=== PATIENT | male | born 1945 | race Caucasian/White ===

== ENCOUNTER 2018-04-20 15:51 | Emergency (ER) | payer MEDICARE ==
[2018-04-20 16:06] LABS: BASOPHILS % (AUTO) 0.2 % (0.0-5.0); EOSINOPHILS % (AUTO) 0.2 % (0.0-8.0); LYMPHOCYTES % (AUTO) 6.4 % (21.0-51.0); MEAN CORPUSCULAR HEMOGLOBIN 29.9 pg (27.0-33.0); MEAN CORPUSCULAR HGB CONC 34.5 g/dL (32.0-36.0); MEAN CORPUSCULAR VOLUME 86.7 fL (79-99); MONOCYTES % (AUTO) 5.2 % (3.0-13.0); PLATELET COUNT (AUTO) 236 K/uL (130-400); RED BLOOD CELL COUNT(AUTO) 3.69 MIL/uL (4.50-6.20)
[2018-04-20 16:19] LABS: CREATININE 2.1 mg/dL (0.5-1.5); INR 0.95 (0.85-1.15); PARTIAL THROMBOPLASTIN TIME 29.5 SEC (26.3-35.5); POTASSIUM 3.9 mmol/L (3.5-5.1)
[2018-04-20 16:24] LABS: ALBUMIN 2.8 g/dL (3.5-5.0); BILIRUBIN,TOTAL 0.5 mg/dL (0.2-1.0); TOTAL PROTEIN, SERUM 6.4 g/dL (6.0-8.3)
[2018-04-20] MEDS ORDERED: ASPIRIN 325 MG TABLET ONE (18:33)
== END 2018-04-20 18:45 | disposition home or self-care (01) ==
LOC: EDH 15:51
DX: R07.89 Other chest pain (principal); I10 Essential (primary) hypertension; E11.9 Type 2 diabetes mellitus without complications; E78.5 Hyperlipidemia, unspecified; Z90.49 Acquired absence of other specified parts of digestive tract; Z98.890 Other specified postprocedural states; Z87.891 Personal history of nicotine dependence
CPT/HCPCS: 36415; 71045; 80053; 82550; 84484; 85025; 85610; 85730; 93005

== ENCOUNTER 2019-05-17 15:38 | Emergency (ER) | payer MEDICARE ==
[2019-05-17 17:43] LABS: BASOPHILS % (AUTO) 0.3 % (0.0-5.0); EOSINOPHILS % (AUTO) 0.3 % (0.0-8.0); HEMATOCRIT 35.4 % (42-54); LYMPHOCYTES % (AUTO) 5.6 % (21.0-51.0); MEAN CORPUSCULAR HEMOGLOBIN 29.5 pg (27.0-33.0); MEAN CORPUSCULAR HGB CONC 33.9 g/dL (32.0-36.0); MONOCYTES % (AUTO) 3.3 % (3.0-13.0); PLATELET COUNT (AUTO) 237 K/uL (130-400); RED BLOOD CELL COUNT(AUTO) 4.07 MIL/uL (4.50-6.20); RED CELL DISTRIBUTION WIDTH 13.7 % (11.0-15.5); WHITE BLOOD COUNT (AUTO) 13.5 K/uL (4.8-10.8)
[2019-05-17] MEDS ORDERED: SODIUM CHLORIDE 0.9% 1000ML 1,000 ML IV ONE (17:48)
[2019-05-17 17:55] LABS: POTASSIUM 3.9 mmol/L (3.5-5.1)
[2019-05-17 18:00] LABS: ALBUMIN 3.2 g/dL (3.5-5.0); BILIRUBIN,TOTAL 0.4 mg/dL (0.2-1.0); TOTAL PROTEIN, SERUM 6.5 g/dL (6.0-8.3)
[2019-05-17 19:09] LABS: APPEARANCE,URINE Clear (CLEAR); BILIRUBIN,URINE Negative (NEGATIVE); COLOR,URINE Yellow (YELLOW); GLUCOSE, URINE (UA) Negative (NEGATIVE); KETONES,URINE Negative (NEGATIVE); LEUKOCYTE ESTERASE ,URINE Negative (NEGATIVE); NITRATE,URINE Negative (NEGATIVE); OCCULT BLOOD,URINE Negative (NEGATIVE); PROTEIN,URINE POS 2+ mg/dL (NEGATIVE); UROBILINOGEN,URINE 0.2 mg/dL (0.2-1.0)
[2019-05-17 19:19] LABS: BACTERIA,URINE Few /HPF (None Seen); SQUAMOUS EPITHELIAL CELL,UR Moderate /HPF (0-2)
[2019-05-17 19:20] LABS: MUCUS,URINE Many LPF (None Seen)
== END 2019-05-17 20:19 | disposition home or self-care (01) ==
LOC: EDH 15:38
DX: G90.01 Carotid sinus syncope (principal); E11.9 Type 2 diabetes mellitus without complications; I10 Essential (primary) hypertension; E78.5 Hyperlipidemia, unspecified; Z95.1 Presence of aortocoronary bypass graft; Z87.891 Personal history of nicotine dependence
CPT/HCPCS: 36415; 70450; 80053; 81001; 82948; 83735; 84484; 85025; 93005; 96360; 96361; 99285; J7030

== ENCOUNTER → 2020-11-28 | Outpatient (CLI) | payer MEDICARE ==
[~2020-11-28] MED LIST: AMIT25TA9 PO; AMLO-258 PO; ATEN50TA PO; CLOP75TA32 PO; DOXE6TAB4 PO; ERGO2000 PO; FAMO40TA7 PO; FOLI0.8T2 PO; FURO80TA3 PO; INSU100I21 SQ; LOSA50TA64 PO; SITA50TA PO; TAMS-1 PO; TORS100T16 PO; ZOLP5TAB8 PO
== END | disposition home or self-care (01) ==
LOC: SHCH 15:05
PROVIDERS: ATTEND Internal Medicine Cardiovascular Disease
DX: I47.1 Supraventricular tachycardia (principal); R55 Syncope and collapse
CPT/HCPCS: 93306; 93356

== ENCOUNTER 2021-02-10 00:55 | Inpatient (IN) | payer MEDICARE ==
[2021-02-10] VITALS (9 sets, daily range): BP systolic 118–145; BP diastolic 48–81
[~2021-02-10] VITALS: Ht 177.8 cm; Wt 106.2 kg
[2021-02-10 01:33] LABS: POTASSIUM 4.6 mmol/L (3.5-5.1)
[2021-02-10 01:44] LABS: ALBUMIN 2.6 g/dL (3.5-5.0); BILIRUBIN,TOTAL 0.4 mg/dL (0.2-1.0); CREATININE 6.8 mg/dL (0.5-1.5); TOTAL PROTEIN, SERUM 5.8 g/dL (6.0-8.3)
[2021-02-10] MEDS ORDERED: MORPHINE 4 MG SYG IV ONE (02:00)
[2021-02-10] MEDS ORDERED: HEPARIN 5,000 UNIT VIAL IV ONE (02:00)
[2021-02-10 02:11] LABS: BASOPHILS % (AUTO) 0.2 % (0.0-5.0); EOSINOPHILS % (AUTO) 0.3 % (0.0-8.0); HEMATOCRIT 24.2 % (42-54); LYMPHOCYTES % (AUTO) 1.5 % (21.0-51.0); MEAN CORPUSCULAR HEMOGLOBIN 28.4 pg (27.0-33.0); MEAN CORPUSCULAR HGB CONC 32.6 g/dL (32.0-36.0); MEAN CORPUSCULAR VOLUME 87.1 fL (79-99); MONOCYTES % (AUTO) 3.5 % (3.0-13.0); NEUTROPHILS % (AUTO) 93.7 % (40.0-77.0); PLATELET COUNT (AUTO) 252 K/uL (130-400); RED BLOOD CELL COUNT(AUTO) 2.78 MIL/uL (4.50-6.20); RED CELL DISTRIBUTION WIDTH 15.3 % (11.0-15.5); WHITE BLOOD COUNT (AUTO) 14.6 K/uL (4.8-10.8)
[2021-02-10 02:30] LABS: INR 1.02 (0.85-1.15); PROTHROMBIN TIME 11.1 SEC (9.6-11.6)
[2021-02-10 02:31] LABS: B-TYPE NATRIURETIC PEPTIDE 3780 pg/mL (0-100)
[2021-02-10] MEDS ORDERED: HEPARIN 25,000 UNITS/250ML D5W 250 ML IV SCH (03:00)
[2021-02-10] MEDS ORDERED: ONDANSETRON 4MG INJ IV PRN (03:00)
[2021-02-10] MEDS ORDERED: CLOPIDOGREL 300MG TAB PO SCH (03:00)
[2021-02-10] MEDS ORDERED: ASPIRIN 81MG CHEW TAB PO ONE (03:00)
[2021-02-10 03:23] LABS: CHOLESTEROL 140 mg/dL (<200); CREATINE KINASE, TOTAL 89 U/L (21-232); HDL CHOLESTEROL 34 mg/dL (29-71); LDL DIRECT 85 mg/dL (0-99); MYOGLOBIN 213 ng/mL (10-92); TRIGLYCERIDES 121 mg/dL (30-200)
[2021-02-10] MEDS: NITROGLYCERIN 1GM OINT 1 INCH/1GM TD SCH ×4 (03:38→20:01)
[2021-02-10] MEDS ORDERED: OMEP40CA21 PO (04:50)
[2021-02-10] MEDS ORDERED: PIND5 PO (04:50)
[2021-02-10] MEDS ORDERED: MIDO10TA PO (04:50)
[2021-02-10 06:19] LABS: PARTIAL THROMBOPLASTIN TIME 26.5 SEC (26.3-35.5)
[2021-02-10] MEDS ORDERED: FAMOTIDINE 20MG VIAL IV SCH (09:00)
[2021-02-10] MEDS ORDERED: METOPROLOL TARTRATE 25 MG TAB PO SCH (09:00)
[2021-02-10] MEDS: ASPIRIN 81 MG EC TAB PO SCH (10:06)
[2021-02-10 12:44] LABS: HEMOGLOBIN A1C 9.5 % (4.0-6.0)
[2021-02-10] MEDS: INSULIN HUMULIN R 100 UNIT/ML 3ML SQ SCH ×2 (18:06→20:04)
[2021-02-10] MEDS: LOSARTAN 25 MG TABLET PO SCH (20:00)
[2021-02-10] MEDS: INSULIN GLARGINE 100 UNITS/ML 10 ML VIAL SQ SCH (20:03)
[2021-02-10 20:25] LABS: APPEARANCE,URINE Clear (CLEAR); BILIRUBIN,URINE Negative (NEGATIVE); COLOR,URINE Yellow (YELLOW); GLUCOSE, URINE (UA) 500 mg/dL (NEGATIVE); KETONES,URINE Trace mg/dL (NEGATIVE); LEUKOCYTE ESTERASE ,URINE Negative (NEGATIVE); NITRATE,URINE Negative (NEGATIVE); OCCULT BLOOD,URINE Negative (NEGATIVE); PROTEIN,URINE POS 2+ mg/dL (NEGATIVE)
[2021-02-10 20:37] LABS: BACTERIA,URINE Few /HPF (None Seen)
[2021-02-10 20:38] LABS: MUCUS,URINE Few LPF (None Seen); SQUAMOUS EPITHELIAL CELL,UR Few /HPF (0-2)
[2021-02-10] MEDS ORDERED: INSULIN GLARGINE 100 UNITS/ML 10 ML VIAL SQ SCH (21:00)
[2021-02-11] MEDS: NITROGLYCERIN 1GM OINT 1 INCH/1GM TD SCH (03:14)
[2021-02-11 03:41] VITALS: BP 131/81
[2021-02-11 03:59] LABS: BASOPHILS % (AUTO) 0.2 % (0.0-5.0); EOSINOPHILS % (AUTO) 1.5 % (0.0-8.0); LYMPHOCYTES % (AUTO) 2.3 % (21.0-51.0); MEAN CORPUSCULAR HEMOGLOBIN 28.1 pg (27.0-33.0); MEAN CORPUSCULAR HGB CONC 32.2 g/dL (32.0-36.0); MEAN CORPUSCULAR VOLUME 87.5 fL (79-99); MONOCYTES % (AUTO) 3.6 % (3.0-13.0); NEUTROPHILS % (AUTO) 91.2 % (40.0-77.0); PLATELET COUNT (AUTO) 297 K/uL (130-400); RED BLOOD CELL COUNT(AUTO) 2.63 MIL/uL (4.50-6.20); RED CELL DISTRIBUTION WIDTH 15.5 % (11.0-15.5); WHITE BLOOD COUNT (AUTO) 14.6 K/uL (4.8-10.8)
[2021-02-11 04:13] LABS: HEMOGLOBIN A1C 9.3 % (4.0-6.0)
[2021-02-11 04:16] LABS: MAGNESIUM 2.3 mg/dL (1.80-2.40); PHOSPHORUS 4.2 mg/dL (2.5-4.9); POTASSIUM 4.6 mmol/L (3.5-5.1)
[2021-02-11] MEDS: INSULIN HUMULIN R 100 UNIT/ML 3ML SQ SCH ×7 (06:33→20:45)
[2021-02-11] MEDS: ASPIRIN 81 MG EC TAB PO SCH (07:58)
[2021-02-11] MEDS: PINDOLOL 5 MG TAB PO SCH (07:58)
[2021-02-11] MEDS: PANTOPRAZOLE 40 MG TAB DR PO SCH (07:58)
[2021-02-11] MEDS: TAMSULOSIN HCL 0.4 MG CAP.ER.24H PO SCH (07:58)
[2021-02-11] MEDS: AMITRIPTYLINE 25 MG TABLET PO SCH (07:58)
[2021-02-11] MEDS: CLOPIDOGREL 75MG TAB PO SCH (07:58)
[2021-02-11 08:00] VITALS: BP 153/63
[2021-02-11] MEDS: DOXEPIN 6 MG PO SCH (08:01)
[2021-02-11] MEDS ORDERED: NITROGLYCERIN 1GM OINT 1 INCH/1GM TD PRN (11:00)
[2021-02-11 11:30] VITALS: BP 132/63
[2021-02-11] MEDS: FUROSEMIDE 40MG VIAL IV SCH (15:56)
[2021-02-11 16:00] VITALS: BP 101/50
[2021-02-11 20:02] VITALS: BP 132/57
[2021-02-11] MEDS: LOSARTAN 25 MG TABLET PO SCH (20:44)
[2021-02-11] MEDS: INSULIN GLARGINE 100 UNITS/ML 10 ML VIAL SQ SCH (20:45)
[2021-02-11 23:48] VITALS: BP 135/56
[2021-02-12] MEDS: FUROSEMIDE 40MG VIAL IV SCH ×2 (03:53→16:38)
[2021-02-12 04:04] VITALS: BP 142/64
[2021-02-12 04:11] LABS: HEMATOCRIT 23.1 % (42-54); MEAN CORPUSCULAR HGB CONC 31.6 g/dL (32.0-36.0); MEAN CORPUSCULAR VOLUME 88.5 fL (79-99); RED BLOOD CELL COUNT(AUTO) 2.61 MIL/uL (4.50-6.20); RED CELL DISTRIBUTION WIDTH 15.6 % (11.0-15.5); WHITE BLOOD COUNT (AUTO) 12.8 K/uL (4.8-10.8)
[2021-02-12 04:42] LABS: ALBUMIN 2.2 g/dL (3.5-5.0); BILIRUBIN,DIRECT 0.1 mg/dL (0.0-0.3); BILIRUBIN,TOTAL 0.3 mg/dL (0.2-1.0); CREATININE 6.7 mg/dL (0.5-1.5); PHOSPHORUS 4.9 mg/dL (2.5-4.9); TOTAL PROTEIN, SERUM 5.7 g/dL (6.0-8.3)
[2021-02-12] MEDS: INSULIN HUMULIN R 100 UNIT/ML 3ML SQ SCH ×6 (06:09→21:50)
[2021-02-12] MEDS: PINDOLOL 5 MG TAB PO SCH (07:18)
[2021-02-12] MEDS: TAMSULOSIN HCL 0.4 MG CAP.ER.24H PO SCH (07:18)
[2021-02-12] MEDS: PANTOPRAZOLE 40 MG TAB DR PO SCH (07:18)
[2021-02-12] MEDS: DOXEPIN 6 MG PO SCH (07:18)
[2021-02-12] MEDS: AMITRIPTYLINE 25 MG TABLET PO SCH (07:18)
[2021-02-12] MEDS: CLOPIDOGREL 75MG TAB PO SCH (07:18)
[2021-02-12 07:49] VITALS: BP 150/61
[2021-02-12 11:29] VITALS: BP 123/42
[2021-02-12] MEDS ORDERED: LACTULOSE 20 GM/30 ML UDCUP PO PRN (12:00)
[2021-02-12] MEDS ORDERED: EPOETIN ALFA-EPBX (ESRD) 10,000 UNIT/ML VIAL SQ SCH (14:00)
[2021-02-12 15:23] LABS: % IRON SATURATION 14.3 % (30-44)
[2021-02-12 16:00] VITALS: BP 149/70
[2021-02-12 20:12] VITALS: BP 136/58
[2021-02-12] MEDS ORDERED: INSULIN GLARGINE 100 UNITS/ML 10 ML VIAL SQ SCH (21:00)
[2021-02-12] MEDS: LOSARTAN 25 MG TABLET PO SCH (21:44)
[2021-02-13 00:16] VITALS: BP 136/52
[2021-02-13] MEDS: FUROSEMIDE 40MG VIAL IV SCH ×2 (03:19→15:01)
[2021-02-13 04:16] VITALS: BP 139/51
[2021-02-13 04:47] LABS: HEMATOCRIT 22.9 % (42-54); MEAN CORPUSCULAR HGB CONC 31.9 g/dL (32.0-36.0); MEAN CORPUSCULAR VOLUME 87.7 fL (79-99); RED BLOOD CELL COUNT(AUTO) 2.61 MIL/uL (4.50-6.20); RED CELL DISTRIBUTION WIDTH 15.7 % (11.0-15.5); WHITE BLOOD COUNT (AUTO) 11.1 K/uL (4.8-10.8)
[2021-02-13 05:05] LABS: CREATININE 6.3 mg/dL (0.5-1.5); POTASSIUM 3.9 mmol/L (3.5-5.1)
[2021-02-13] MEDS: INSULIN HUMULIN R 100 UNIT/ML 3ML SQ SCH ×6 (06:13→16:52)
[2021-02-13 08:00] VITALS: BP 143/58
[2021-02-13] MEDS: DOXEPIN 6 MG PO SCH (09:00)
[2021-02-13] MEDS: TAMSULOSIN HCL 0.4 MG CAP.ER.24H PO SCH (09:22)
[2021-02-13] MEDS: AMITRIPTYLINE 25 MG TABLET PO SCH (09:22)
[2021-02-13] MEDS: PINDOLOL 5 MG TAB PO SCH (09:22)
[2021-02-13] MEDS: PANTOPRAZOLE 40 MG TAB DR PO SCH (09:22)
[2021-02-13] MEDS: CLOPIDOGREL 75MG TAB PO SCH (09:22)
[2021-02-13 12:00] VITALS: BP 127/45
[2021-02-13] MEDS ORDERED: FERS325 PO (14:37)
[2021-02-13] MEDS ORDERED: IRON SUCROSE COMPLEX 300 MG in 0.9%NACL 50ML 50 ML IV ONE (15:00)
[2021-02-13] MEDS ORDERED: COMPOUND IV MISC 1 EACH IVSOLN MISC PRN (15:00)
[2021-02-13 16:00] VITALS: BP 133/51
[2021-02-19] MEDS ORDERED: EPOETIN ALFA-EPBX (ESRD) 10,000 UNIT/ML VIAL SQ SCH (09:00)
== END 2021-02-13 19:29 | disposition home or self-care (01) | DRG 280 ==
LOC: EDH 00:55 → EDHIP 02:45 → 4DH 03:35
PROVIDERS: ADMIT Internal Medicine; ATTEND Internal Medicine
PROC: 5A09357 Assistance with Respiratory Ventilation, Less than 24 Consecutive Hours, Continuous Positive Airway Pressure (ICD-10-PCS; principal; 2021-02-10)
DX: I21.4 Non-ST elevation (NSTEMI) myocardial infarction (principal); I50.33 Acute on chronic diastolic (congestive) heart failure; N18.6 End stage renal disease; I13.2 Hypertensive heart and chronic kidney disease with heart failure and with stage 5 chronic kidney disease, or end stage renal disease; I42.9 Cardiomyopathy, unspecified; D63.8 Anemia in other chronic diseases classified elsewhere; D72.829 Elevated white blood cell count, unspecified; I25.10 Atherosclerotic heart disease of native coronary artery without angina pectoris; E78.5 Hyperlipidemia, unspecified; Z20.822 Contact with and (suspected) exposure to COVID-19; M19.90 Unspecified osteoarthritis, unspecified site; N40.0 Benign prostatic hyperplasia without lower urinary tract symptoms; E11.22 Type 2 diabetes mellitus with diabetic chronic kidney disease; E11.65 Type 2 diabetes mellitus with hyperglycemia; E11.40 Type 2 diabetes mellitus with diabetic neuropathy, unspecified; I95.1 Orthostatic hypotension; E11.319 Type 2 diabetes mellitus with unspecified diabetic retinopathy without macular edema; E87.70 Fluid overload, unspecified; Z99.2 Dependence on renal dialysis; Z85.46 Personal history of malignant neoplasm of prostate; Z98.1 Arthrodesis status; Z79.02 Long term (current) use of antithrombotics/antiplatelets; Z79.4 Long term (current) use of insulin; Z95.1 Presence of aortocoronary bypass graft; Z79.899 Other long term (current) drug therapy; Z90.49 Acquired absence of other specified parts of digestive tract; Z91.19 Patient's noncompliance with other medical treatment and regimen
CPT/HCPCS: 36415; 71045; 80048; 80053; 80061; 80076; 81001; 82550; 82728; 82947; 82948; 83036; 83540; 83550; 83735; 83874; 83880; 84100; 84484; 85025; 85027; 85610; 85730; 86850; 86900; 86901; 87635; 93005; 93306; 94660; 94760; 97039; G0378; J1644; J1756; J1815; J1940; J2270; J3490

== ENCOUNTER 2021-03-13 08:24 | Observation (INO) | payer MEDICARE ==
[2021-03-07 13:39] LABS: BASOPHILS % (AUTO) 0.3 % (0.0-5.0); EOSINOPHILS % (AUTO) 1.2 % (0.0-8.0); HEMATOCRIT 28.9 % (42-54); LYMPHOCYTES % (AUTO) 2.9 % (21.0-51.0); MEAN CORPUSCULAR HEMOGLOBIN 27.5 pg (27.0-33.0); MEAN CORPUSCULAR HGB CONC 30.4 g/dL (32.0-36.0); MEAN CORPUSCULAR VOLUME 90.3 fL (79-99); MONOCYTES % (AUTO) 4.7 % (3.0-13.0); NEUTROPHILS % (AUTO) 90.3 % (40.0-77.0); PLATELET COUNT (AUTO) 241 K/uL (130-400); RED CELL DISTRIBUTION WIDTH 16.5 % (11.0-15.5); WHITE BLOOD COUNT (AUTO) 12.9 K/uL (4.8-10.8)
[2021-03-07 13:40] LABS: APPEARANCE,URINE Clear (CLEAR); BILIRUBIN,URINE Negative (NEGATIVE); COLOR,URINE Yellow (YELLOW); GLUCOSE, URINE (UA) TRACE mg/dL (NEGATIVE); KETONES,URINE Negative (NEGATIVE); LEUKOCYTE ESTERASE ,URINE Negative (NEGATIVE); NITRATE,URINE Negative (NEGATIVE); OCCULT BLOOD,URINE Negative (NEGATIVE); PROTEIN,URINE POS 2+ mg/dL (NEGATIVE)
[2021-03-07 13:53] LABS: INR 0.99 (0.85-1.15); PROTHROMBIN TIME 10.8 SEC (9.6-11.6)
[2021-03-07 13:54] LABS: CREATININE 6.3 mg/dL (0.5-1.5); PARTIAL THROMBOPLASTIN TIME 25.6 SEC (26.3-35.5); POTASSIUM 4.7 mmol/L (3.5-5.1)
[2021-03-07 13:55] LABS: BACTERIA,URINE Rare /HPF (None Seen); HYALINE CASTS, URINE 0-1 /LPF (0-1 /LPF); RBC,URINE 0-1 /HPF (0-1); SQUAMOUS EPITHELIAL CELL,UR Rare /HPF (0-2)
[~2021-03-13] VITALS: Ht 175.3 cm; Wt 100.5 kg
[2021-03-13] VITALS (9 sets, daily range): BP systolic 115–133; BP diastolic 50–61
[~2021-03-13 08:24] MED LIST changes: -AMLO-258 PO; -ATEN50TA PO; -DOXE6TAB4 PO; -FAMO40TA7 PO; -FURO80TA3 PO; +INSU100C6 SQ; +LIRA0.6P SQ; -LOSA50TA64 PO; +MIDO10TA PO; +MULT-1367 PO; +OMEG-148 PO; +OMEP40CA21 PO; +PIND5 PO; -SITA50TA PO; -TORS100T16 PO; +UBID300C PO; -ZOLP5TAB8 PO
[2021-03-13 08:53] LABS: HEMATOCRIT 28.8 % (42-54); MEAN CORPUSCULAR HEMOGLOBIN 27.6 pg (27.0-33.0); MEAN CORPUSCULAR HGB CONC 30.9 g/dL (32.0-36.0); MEAN CORPUSCULAR VOLUME 89.4 fL (79-99); PLATELET COUNT (AUTO) 219 K/uL (130-400); RED BLOOD CELL COUNT(AUTO) 3.22 MIL/uL (4.50-6.20); RED CELL DISTRIBUTION WIDTH 16.3 % (11.0-15.5)
[2021-03-13 10:16] LABS: EOSINOPHILS % (MANUAL) 1 % (1-6); LYMPHOCYTES % (MANUAL) 7 % (22-44); MAN.DIFF COMMENT-IMPRESSION MANUAL DIFFERENTIAL; MONOCYTES % (MANUAL) 2 % (2-9); SEGMENTED NEUTROPHILS % 90 % (40-70)
[2021-03-13 10:17] LABS: PLATELET MORPHOLOGY COMMENT ADEQUATE
[2021-03-13] MEDS ORDERED: DEXTROSE 50%-WATER 50 ML DISP.SYRIN IV ONE (11:31)
[2021-03-13] MEDS ORDERED: IOHEXOL-350 50ML VIAL IV ONE (12:09)
[2021-03-13] MEDS ORDERED: NITROGLYCERIN 2 MG VIAL IV ONE (12:09)
[2021-03-13] MEDS ORDERED: IOHEXOL 350 MG/ML 100ML INFUS..BTL IV ONE ×2 (12:09→13:13)
[2021-03-13] MEDS ORDERED: LIDOCAINE HCL 400MG/20ML VIAL ONE (12:10)
[2021-03-13] MEDS ORDERED: FENTANYL CITRATE PF 50 MCG/1 ML 2ML VIAL ONE (13:03)
[2021-03-13] MEDS ORDERED: MIDAZOLAM HCL 1 MG/ML 2ML VIAL ONE (13:03)
[2021-03-13] MEDS ORDERED: BIVALIRUDIN 250 MG/VIAL IV ONE (13:16)
[2021-03-13] MEDS ORDERED: ASPIRIN 81MG CHEW TAB ONE (14:21)
[2021-03-13] MEDS ORDERED: CLOPIDOGREL 300MG TAB ONE (14:21)
[2021-03-13] MEDS ORDERED: GLUCAGON 1MG KIT 1 MG ML IM PRN (15:00)
[2021-03-13] MEDS ORDERED: DEXTROSE 50%-WATER 50 ML DISP.SYRIN IV PRN (15:00)
[2021-03-13] MEDS ORDERED: INSULIN HUMULIN R 100 UNIT/ML 3ML SQ SCH (16:30)
[2021-03-14] MEDS ORDERED: CLOPIDOGREL 75MG TAB PO SCH (09:00)
== END 2021-03-13 20:07 | disposition home or self-care (01) ==
LOC: DAH 08:24 → DAHIP 08:25 → 4BH 15:24
PROVIDERS: ADMIT Internal Medicine Cardiovascular Disease; ATTEND Internal Medicine Cardiovascular Disease
DX: I25.118 Atherosclerotic heart disease of native coronary artery with other forms of angina pectoris (principal); I25.5 Ischemic cardiomyopathy; I13.2 Hypertensive heart and chronic kidney disease with heart failure and with stage 5 chronic kidney disease, or end stage renal disease; E11.22 Type 2 diabetes mellitus with diabetic chronic kidney disease; I50.43 Acute on chronic combined systolic (congestive) and diastolic (congestive) heart failure; N18.5 Chronic kidney disease, stage 5; E78.49 Other hyperlipidemia; E66.9 Obesity, unspecified; Z95.1 Presence of aortocoronary bypass graft; Z99.2 Dependence on renal dialysis; Z79.899 Other long term (current) drug therapy
CPT/HCPCS: 36415 ×2; 71045; 80048; 81001; 82948 ×3; 85025 ×2; 85610; 85730; 93005; 93459; C1725 ×3; C1760; C1769 ×2; C1874 ×2; C1887 ×2; C1894 ×2; C9600; C9604; G0378 ×5; J0583; J1644 ×2; J2250; J3010; J3490 ×2; J7070; Q9965 ×2; Q9967 ×3; 99156; 99157

== ENCOUNTER 2021-03-29 15:09 | Emergency (ER) | payer MEDICARE ==
[~2021-03-29] VITALS: Ht 175.3 cm; Wt 99.8 kg
[2021-03-29 15:50] LABS: BASOPHILS % (AUTO) 0.3 % (0.0-5.0); EOSINOPHILS % (AUTO) 0.7 % (0.0-8.0); HEMATOCRIT 28.8 % (42-54); LYMPHOCYTES % (AUTO) 2.6 % (21.0-51.0); MEAN CORPUSCULAR HEMOGLOBIN 27.6 pg (27.0-33.0); MEAN CORPUSCULAR HGB CONC 32.6 g/dL (32.0-36.0); MEAN CORPUSCULAR VOLUME 84.7 fL (79-99); MONOCYTES % (AUTO) 3.7 % (3.0-13.0); PLATELET COUNT (AUTO) 239 K/uL (130-400); RED CELL DISTRIBUTION WIDTH 16.3 % (11.0-15.5); WHITE BLOOD COUNT (AUTO) 14.8 K/uL (4.8-10.8)
[2021-03-29 15:57] VITALS: BP 91/39
[2021-03-29 16:05] LABS: PROTHROMBIN TIME 10.9 SEC (9.6-11.6)
[2021-03-29 16:09] LABS: CREATININE 7.6 mg/dL (0.5-1.5); POTASSIUM 3.9 mmol/L (3.5-5.1)
[2021-03-29 16:13] LABS: ALBUMIN 2.6 g/dL (3.5-5.0); BILIRUBIN,TOTAL 0.3 mg/dL (0.2-1.0); MAGNESIUM 1.5 mg/dL (1.80-2.40); TOTAL PROTEIN, SERUM 6.1 g/dL (6.0-8.3)
== END 2021-03-29 17:49 | disposition home or self-care (01) ==
LOC: EDH 15:09
DX: I95.1 Orthostatic hypotension (principal); E11.9 Type 2 diabetes mellitus without complications; E78.00 Pure hypercholesterolemia, unspecified; I10 Essential (primary) hypertension; Z79.4 Long term (current) use of insulin; Z79.899 Other long term (current) drug therapy; W18.30XA Fall on same level, unspecified, initial encounter
CPT/HCPCS: 36415; 80053; 83735; 84484; 85025; 85610; 85730; 93005

== ENCOUNTER 2021-04-25 12:10 | Inpatient (IN) | payer MEDICARE ==
[~2021-04-25] VITALS: Ht 177.8 cm; Wt 110.4 kg
[2021-04-25 13:09] LABS: BASOPHILS % (AUTO) 0.3 % (0.0-5.0); EOSINOPHILS % (AUTO) 1.5 % (0.0-8.0); LYMPHOCYTES % (AUTO) 2.4 % (21.0-51.0); MEAN CORPUSCULAR HEMOGLOBIN 26.6 pg (27.0-33.0); MEAN CORPUSCULAR HGB CONC 32.1 g/dL (32.0-36.0); MEAN CORPUSCULAR VOLUME 82.9 fL (79-99); NEUTROPHILS % (AUTO) 91.2 % (40.0-77.0); PLATELET COUNT (AUTO) 291 K/uL (130-400); WHITE BLOOD COUNT (AUTO) 11.9 K/uL (4.8-10.8)
[2021-04-25 13:17] LABS: POTASSIUM 3.3 mmol/L (3.5-5.1)
[2021-04-25 13:27] LABS: ALBUMIN 1.9 g/dL (3.5-5.0); BILIRUBIN,TOTAL 0.2 mg/dL (0.2-1.0); TOTAL PROTEIN, SERUM 5.7 g/dL (6.0-8.3)
[2021-04-25] MEDS ORDERED: DEXTROSE 50%-WATER 50 ML DISP.SYRIN IV PRN (18:00)
[2021-04-25] MEDS ORDERED: GLUCAGON 1MG KIT 1 MG ML IM PRN (18:00)
[2021-04-25] MEDS ORDERED: ACETAMINOPHEN 325 MG TAB PO PRN ×2 (18:30)
[2021-04-25] MEDS ORDERED: NITROGLYCERIN 0.4 MG SL TAB SL PRN (18:30)
[2021-04-25] MEDS ORDERED: POTASSIUM CHLORIDE 10MEQ SR TAB PO SCH (18:30)
[2021-04-25 19:03] LABS: HEMOGLOBIN A1C 9.7 % (4.0-6.0)
[2021-04-25 19:10] LABS: % IRON SATURATION 17.3 % (30-44)
[2021-04-25 19:21] LABS: MAGNESIUM 1.3 mg/dL (1.80-2.40)
[2021-04-25 19:23] LABS: PROTHROMBIN TIME 10.9 SEC (9.6-11.6)
[2021-04-25] MEDS ORDERED: KCL 20 MEQ ERTAB PO ONE (19:43)
[2021-04-25] MEDS ORDERED: FAMOTIDINE 20MG TAB PO SCH (21:00)
[2021-04-25] MEDS: INSULIN HUMULIN R 100 UNIT/ML 3ML SQ SCH (21:00)
[2021-04-25 22:00] VITALS: BP_SYST 175; BP_SYST 176; BP_DIAS 72; BP_DIAS 75; BP_DIAS 76
[2021-04-25] MEDS: FAMOTIDINE 20MG TAB PO SCH (22:36)
[2021-04-25] MEDS: MAGNESIUM 2GM PREMIX 50ML 50 ML IV SCH (22:38)
[2021-04-25] MEDS: HEPARIN 5,000 UNIT VIAL SQ SCH (22:41)
[2021-04-26 04:38] VITALS: BP 156/66
[2021-04-26 05:47] LABS: BASOPHILS % (AUTO) 0.4 % (0.0-5.0); EOSINOPHILS % (AUTO) 1.6 % (0.0-8.0); LYMPHOCYTES % (AUTO) 3.6 % (21.0-51.0); MEAN CORPUSCULAR HEMOGLOBIN 25.9 pg (27.0-33.0); MEAN CORPUSCULAR HGB CONC 31.1 g/dL (32.0-36.0); MEAN CORPUSCULAR VOLUME 83.3 fL (79-99); MONOCYTES % (AUTO) 4.8 % (3.0-13.0); NEUTROPHILS % (AUTO) 89.1 % (40.0-77.0); PLATELET COUNT (AUTO) 257 K/uL (130-400); RED BLOOD CELL COUNT(AUTO) 3.24 MIL/uL (4.50-6.20); RED CELL DISTRIBUTION WIDTH 16.8 % (11.0-15.5); WHITE BLOOD COUNT (AUTO) 8.4 K/uL (4.8-10.8)
[2021-04-26] MEDS: INSULIN HUMULIN R 100 UNIT/ML 3ML SQ SCH ×5 (06:01→21:13)
[2021-04-26 06:21] LABS: ALBUMIN 1.6 g/dL (3.5-5.0); BILIRUBIN,TOTAL 0.2 mg/dL (0.2-1.0); MAGNESIUM 1.4 mg/dL (1.80-2.40); PHOSPHORUS 3.7 mg/dL (2.5-4.9); POTASSIUM 3.3 mmol/L (3.5-5.1); TOTAL PROTEIN, SERUM 4.9 g/dL (6.0-8.3)
[2021-04-26 07:39] VITALS: BP 126/57
[2021-04-26 08:06] LABS: CREATININE 5.1 mg/dL (0.5-1.5); POTASSIUM 3.5 mmol/L (3.5-5.1)
[2021-04-26] MEDS ORDERED: PNEUMOCOCCAL VACCINE POLYVALENT 0.5 ML/VIAL [PPV] IM ONE (09:00)
[2021-04-26] MEDS: Vitamin B Complex/Vit C/Folic Acid PO SCH (09:05)
[2021-04-26] MEDS: HEPARIN 5,000 UNIT VIAL SQ SCH ×3 (09:17→21:13)
[2021-04-26] MEDS ORDERED: POTASSIUM CHLORIDE 10% ELIXIR 20 MEQ/15 ML UDCUP PO PRN (11:00)
[2021-04-26] MEDS ORDERED: KCL 20 MEQ ERTAB PO PRN (11:00)
[2021-04-26] MEDS ORDERED: POTASSIUM CHLORIDE 10MEQ/100ML 100 ML IV PRN (11:00)
[2021-04-26] MEDS ORDERED: LIDOCAINE HCL-MPF 1% 2ML VIAL IV PRN (11:00)
[2021-04-26 11:43] VITALS: BP 137/44
[2021-04-26 12:40] LABS: APPEARANCE,URINE Clear (CLEAR); BILIRUBIN,URINE Negative (NEGATIVE); COLOR,URINE Yellow (YELLOW); GLUCOSE, URINE (UA) >=1000 mg/dL (NEGATIVE); KETONES,URINE Negative (NEGATIVE); LEUKOCYTE ESTERASE ,URINE Negative (NEGATIVE); NITRATE,URINE Negative (NEGATIVE); OCCULT BLOOD,URINE Negative (NEGATIVE); PH,URINE 6.5 (5.0-8.0); PROTEIN,URINE POS 2+ mg/dL (NEGATIVE); UROBILINOGEN,URINE 0.2 mg/dL (0.2-1.0)
[2021-04-26 12:48] LABS: AMPHET/METH SCREEN,URINE NEGATIVE (NEGATIVE); BARBITURATE SCREEN, URINE NEGATIVE (NEGATIVE); BENZODIAZEPINES SCREEN,URINE NEGATIVE (NEGATIVE); CANNABINOID SCREEN,URINE NEGATIVE (NEGATIVE); COCAINE SCREEN,URINE NEGATIVE (NEGATIVE); OPIATE SCREEN,URINE NEGATIVE (NEGATIVE); PHENCYCLIDINE SCREEN,URINE NEGATIVE (NEGATIVE)
[2021-04-26 12:55] LABS: BACTERIA,URINE Rare /HPF (None Seen); RBC,URINE 0-1 /HPF (0-1)
[2021-04-26 12:56] LABS: SQUAMOUS EPITHELIAL CELL,UR None Seen /HPF (0-2)
[2021-04-26 13:42] LABS: CREATININE 5.3 mg/dL (0.5-1.5); POTASSIUM 3.5 mmol/L (3.5-5.1)
[2021-04-26] MEDS: MAGNESIUM 2GM PREMIX 50ML 50 ML IV SCH (14:28)
[2021-04-26 16:00] VITALS: BP 165/64
[2021-04-26 19:32] LABS: CREATININE 5.5 mg/dL (0.5-1.5); POTASSIUM 3.8 mmol/L (3.5-5.1)
[2021-04-26 20:00] VITALS: BP 163/64
[2021-04-26] MEDS ORDERED: EPOETIN ALFA-EPBX (ESRD) 10,000 UNIT/ML VIAL SQ SCH (21:00)
[2021-04-26] MEDS: FAMOTIDINE 20MG TAB PO SCH (21:04)
[2021-04-27] VITALS: BP 102/60
[2021-04-27] MEDS: ZOSYN 3.375GM +NS 50ML IV SCH ×2 (02:29→14:35)
[2021-04-27] MEDS ORDERED: FAMO40TA7 PO (03:47)
[2021-04-27 04:00] VITALS: BP 171/69
[2021-04-27 05:37] LABS: HEMATOCRIT 25.1 % (42-54); MEAN CORPUSCULAR HEMOGLOBIN 26.5 pg (27.0-33.0); MEAN CORPUSCULAR HGB CONC 32.3 g/dL (32.0-36.0); RED BLOOD CELL COUNT(AUTO) 3.06 MIL/uL (4.50-6.20); WHITE BLOOD COUNT (AUTO) 7.6 K/uL (4.8-10.8)
[2021-04-27 05:49] LABS: CREATININE 5.2 mg/dL (0.5-1.5); MAGNESIUM 1.8 mg/dL (1.80-2.40); PHOSPHORUS 3.8 mg/dL (2.5-4.9); POTASSIUM 3.5 mmol/L (3.5-5.1)
[2021-04-27] MEDS: INSULIN HUMULIN R 100 UNIT/ML 3ML SQ SCH ×4 (06:23→20:05)
[2021-04-27 08:00] VITALS: BP 179/73
[2021-04-27] MEDS ORDERED: CLOPIDOGREL 75MG TAB PO SCH (09:20)
[2021-04-27] MEDS ORDERED: ERGOCALCIFEROL (VITAMIN D2) 50,000 UNIT CAPSULE PO SCH (09:21)
[2021-04-27] MEDS ORDERED: VANCOMYCIN PROTOCOL PER PHARMACY IV SCH (09:30)
[2021-04-27] MEDS ORDERED: PANTOPRAZOLE 40 MG TAB DR PO SCH (09:30)
[2021-04-27] MEDS ORDERED: VANCOMYCIN KIT 1 GM/250 ML IV.KIT IV SCH (10:00)
[2021-04-27] MEDS ORDERED: 0.9% NACL 250ML 250 ML IV SCH (10:00)
[2021-04-27] MEDS: Vitamin B Complex/Vit C/Folic Acid PO SCH (11:22)
[2021-04-27] MEDS: KCL 20 MEQ ERTAB PO SCH (11:23)
[2021-04-27 13:03] VITALS: BP 171/72
[2021-04-27 14:06] LABS: HEMATOCRIT 26.8 % (42-54)
[2021-04-27] MEDS: PANTOPRAZOLE 40 MG/VIAL IVP SCH ×2 (14:46→20:05)
[2021-04-27] MEDS ORDERED: COMPOUND IV MISC 1 EACH IVSOLN MISC PRN (15:00)
[2021-04-27] MEDS ORDERED: INSULIN GLARGINE 100 UNITS/ML 10 ML VIAL SQ ONE (15:30)
[2021-04-27 17:33] VITALS: BP 174/100
[2021-04-27] MEDS: PINDOLOL 5 MG TAB PO SCH (17:51)
[2021-04-27] MEDS ORDERED: TAMSULOSIN HCL 0.4 MG CAP.ER.24H ONE (19:27)
[2021-04-27 20:00] VITALS: BP 163/66
[2021-04-27] MEDS: ASPIRIN 81 MG EC TAB PO SCH (20:00)
[2021-04-27] MEDS: TAMSULOSIN HCL 0.4 MG CAP.ER.24H PO SCH (20:05)
[2021-04-27] MEDS: AMITRIPTYLINE 25 MG TABLET PO SCH (20:05)
[2021-04-27] MEDS ORDERED: INSULIN GLARGINE 100 UNITS/ML 10 ML VIAL SQ SCH (21:00)
[2021-04-28] VITALS (17 sets, daily range): BP systolic 127–170; BP diastolic 52–77
[2021-04-28] MEDS: ZOSYN 3.375GM +NS 50ML IV SCH ×2 (02:12→15:15)
[2021-04-28] MEDS ORDERED: INSULIN GLARGINE 100 UNITS/ML 10 ML VIAL SQ SCH (07:00)
[2021-04-28 07:03] LABS: HEMATOCRIT 25.5 % (42-54); MEAN CORPUSCULAR HEMOGLOBIN 26.4 pg (27.0-33.0); MEAN CORPUSCULAR HGB CONC 31.4 g/dL (32.0-36.0); MEAN CORPUSCULAR VOLUME 84.2 fL (79-99); PLATELET COUNT (AUTO) 267 K/uL (130-400); RED BLOOD CELL COUNT(AUTO) 3.03 MIL/uL (4.50-6.20); RED CELL DISTRIBUTION WIDTH 17.2 % (11.0-15.5); WHITE BLOOD COUNT (AUTO) 6.9 K/uL (4.8-10.8)
[2021-04-28] MEDS: INSULIN HUMULIN R 100 UNIT/ML 3ML SQ SCH ×7 (07:07→21:00)
[2021-04-28 07:29] LABS: BASOPHILS % (MANUAL) 1 % (0-2); EOSINOPHILS % (MANUAL) 2 % (1-6); LYMPHOCYTES % (MANUAL) 6 % (22-44); MAN.DIFF COMMENT-IMPRESSION MANUAL DIFFERENTIAL; MONOCYTES % (MANUAL) 1 % (2-9); PLATELET MORPHOLOGY COMMENT ADEQUATE; SEGMENTED NEUTROPHILS % 90 % (40-70)
[2021-04-28] MEDS ORDERED: INSULIN HUMULIN R 100 UNIT/ML 3ML SQ SCH (07:30)
[2021-04-28 07:41] LABS: CREATININE 4.9 mg/dL (0.5-1.5); PHOSPHORUS 3.7 mg/dL (2.5-4.9); POTASSIUM 3.2 mmol/L (3.5-5.1)
[2021-04-28] MEDS: UBIDECARENONE 300 MG PO SCH (09:00)
[2021-04-28] MEDS ORDERED: Vitamin B Complex/Vit C/Folic Acid PO SCH (09:00)
[2021-04-28] MEDS ORDERED: IRON SUCROSE COMPLEX 300 MG in 0.9% NACL 250ML 250 ML IV SCH (09:00)
[2021-04-28] MEDS ORDERED: PROPOFOL 10 MG/ML 20ML VIAL IV ONE (09:08)
[2021-04-28] MEDS ORDERED: LACTULOSE 20 GM/30 ML UDCUP PO SCH ×2 (10:00→12:00)
[2021-04-28] MEDS: ASPIRIN 81 MG EC TAB PO SCH (10:52)
[2021-04-28] MEDS: Vitamin B Complex/Vit C/Folic Acid PO SCH (10:52)
[2021-04-28] MEDS: MULTIVITAMIN TABLET PO SCH (10:53)
[2021-04-28] MEDS: FISH OIL 1000 MG/CAP PO SCH (10:53)
[2021-04-28] MEDS: PINDOLOL 5 MG TAB PO SCH (10:54)
[2021-04-28] MEDS: KCL 20 MEQ ERTAB PO SCH (10:54)
[2021-04-28] MEDS ORDERED: 0.9% NACL 250ML 250 ML IV SCH (12:30)
[2021-04-28] MEDS: VANCOMYCIN 750MG VIAL IVPB SCH (12:40)
[2021-04-28] MEDS ORDERED: PEG 3350/NA SULF,BICARB,CL/KCL 4000 ML SOLN PO SCH (14:00)
[2021-04-28] MEDS: AMITRIPTYLINE 25 MG TABLET PO SCH (21:38)
[2021-04-28] MEDS: TAMSULOSIN HCL 0.4 MG CAP.ER.24H PO SCH (21:38)
[2021-04-29] VITALS (21 sets, daily range): BP systolic 126–175; BP diastolic 52–84
[2021-04-29] MEDS: ZOSYN 3.375GM +NS 50ML IV SCH ×2 (02:49→15:07)
[2021-04-29 05:22] LABS: % IRON SATURATION 102.5 % (30-44)
[2021-04-29 05:58] LABS: CARBON DIOXIDE 29 mmol/L (21-32); CHLORIDE 102 mmol/L (101-111); CREATININE 5.1 mg/dL (0.5-1.5); GLOMERULAR FILTR. RATE CALC 12 mL/min (>60); GLUCOSE,RANDOM 88 mg/dL (70-105); PHOSPHORUS 4.2 mg/dL (2.5-4.9); POTASSIUM 3.5 mmol/L (3.5-5.1); SODIUM SERUM 141 mmol/L (136-145); THYROID STIMULATING HORMONE 2.59 uIU/mL (0.36-3.74); UREA NITROGEN, BLOOD 30 mg/dL (7-18)
[2021-04-29 06:01] LABS: BASOPHILS % (AUTO) 0.3 % (0.0-5.0); EOSINOPHILS % (AUTO) 1.5 % (0.0-8.0); LYMPHOCYTES % (AUTO) 3.6 % (21.0-51.0); MEAN CORPUSCULAR HEMOGLOBIN 26.3 pg (27.0-33.0); MEAN CORPUSCULAR HGB CONC 31.7 g/dL (32.0-36.0); MEAN CORPUSCULAR VOLUME 83.1 fL (79-99); MONOCYTES % (AUTO) 4.4 % (3.0-13.0); NEUTROPHILS % (AUTO) 89.7 % (40.0-77.0); PLATELET COUNT (AUTO) 297 K/uL (130-400); RED BLOOD CELL COUNT(AUTO) 3.61 MIL/uL (4.50-6.20); RED CELL DISTRIBUTION WIDTH 16.8 % (11.0-15.5); WHITE BLOOD COUNT (AUTO) 10.4 K/uL (4.8-10.8)
[2021-04-29] MEDS: INSULIN HUMULIN R 100 UNIT/ML 3ML SQ SCH ×7 (07:30→21:00)
[2021-04-29] MEDS: FISH OIL 1000 MG/CAP PO SCH (09:00)
[2021-04-29] MEDS: PANTOPRAZOLE 40 MG TAB DR PO SCH (09:00)
[2021-04-29] MEDS: MULTIVITAMIN TABLET PO SCH (09:00)
[2021-04-29] MEDS: Vitamin B Complex/Vit C/Folic Acid PO SCH (09:00)
[2021-04-29] MEDS: PINDOLOL 5 MG TAB PO SCH (09:00)
[2021-04-29] MEDS: UBIDECARENONE 300 MG PO SCH (09:00)
[2021-04-29] MEDS: ASPIRIN 81 MG EC TAB PO SCH (09:00)
[2021-04-29] MEDS: INSULIN GLARGINE 100 UNITS/ML 10 ML VIAL SQ SCH (09:00)
[2021-04-29] MEDS ORDERED: PROPOFOL 10 MG/ML 20ML VIAL IV ONE ×3 (12:13→13:31)
[2021-04-29] MEDS ORDERED: GLYCOPYRROLATE 1 MG/5 ML SYRINGE ONE (13:26)
[2021-04-29] MEDS: KCL 20 MEQ ERTAB PO SCH (15:07)
[2021-04-29] MEDS: CLOPIDOGREL 75MG TAB PO SCH (15:07)
[2021-04-29] MEDS: LACTULOSE 20 GM/30 ML UDCUP PO SCH ×2 (17:00→21:00)
[2021-04-29] MEDS: VANCOMYCIN 750MG VIAL IVPB SCH (17:24)
[2021-04-29] MEDS: AMITRIPTYLINE 25 MG TABLET PO SCH (21:23)
[2021-04-29] MEDS: TAMSULOSIN HCL 0.4 MG CAP.ER.24H PO SCH (21:23)
[2021-04-29] MEDS: HYDROCORTISONE 25 MG SUPPOSITORY PR SCH (21:23)
[2021-04-30] VITALS (7 sets, daily range): BP systolic 122–173; BP diastolic 60–78
[2021-04-30] MEDS: ZOSYN 3.375GM +NS 50ML IV SCH (02:52)
[2021-04-30 05:22] LABS: HEMATOCRIT 28.7 % (42-54); MEAN CORPUSCULAR HGB CONC 32.1 g/dL (32.0-36.0); MEAN CORPUSCULAR VOLUME 84.2 fL (79-99); RED BLOOD CELL COUNT(AUTO) 3.41 MIL/uL (4.50-6.20); RED CELL DISTRIBUTION WIDTH 17.3 % (11.0-15.5); WHITE BLOOD COUNT (AUTO) 8.8 K/uL (4.8-10.8)
[2021-04-30] MEDS: INSULIN HUMULIN R 100 UNIT/ML 3ML SQ SCH ×7 (05:42→21:42)
[2021-04-30 08:29] LABS: POTASSIUM 4.1 mmol/L (3.5-5.1)
[2021-04-30 08:30] LABS: CREATININE 5.4 mg/dL (0.5-1.5); PHOSPHORUS 4.3 mg/dL (2.5-4.9)
[2021-04-30 08:31] LABS: ALBUMIN 1.7 g/dL (3.5-5.0); BILIRUBIN,TOTAL 0.4 mg/dL (0.2-1.0)
[2021-04-30] MEDS: FISH OIL 1000 MG/CAP PO SCH (09:00)
[2021-04-30] MEDS: LACTULOSE 20 GM/30 ML UDCUP PO SCH (09:00)
[2021-04-30] MEDS: PINDOLOL 5 MG TAB PO SCH ×3 (09:00→21:40)
[2021-04-30] MEDS: UBIDECARENONE 300 MG PO SCH (09:00)
[2021-04-30] MEDS: ASPIRIN 81 MG EC TAB PO SCH (09:13)
[2021-04-30] MEDS: KCL 20 MEQ ERTAB PO SCH (09:13)
[2021-04-30] MEDS: PANTOPRAZOLE 40 MG TAB DR PO SCH (09:13)
[2021-04-30] MEDS: Vitamin B Complex/Vit C/Folic Acid PO SCH (09:14)
[2021-04-30] MEDS: MULTIVITAMIN TABLET PO SCH (09:14)
[2021-04-30] MEDS: LOSARTAN 25 MG TABLET PO SCH (09:14)
[2021-04-30] MEDS: CLOPIDOGREL 75MG TAB PO SCH (09:14)
[2021-04-30] MEDS: INSULIN GLARGINE 100 UNITS/ML 10 ML VIAL SQ SCH (09:26)
[2021-04-30] MEDS: HYDROCORTISONE 25 MG SUPPOSITORY PR SCH ×2 (11:08→21:00)
[2021-04-30 13:31] LABS: SPECIMENTYPE,BODY FLUID PERITONEAL
[2021-04-30 13:32] LABS: APPEARANCE BODY FLUID CLEAR (CLEAR); BODY FLUID RBC 120 /cu. mm.; BODY FLUID WBC 170 /cu. mm.; COLOR,BODY FLUID COLORLESS (LT YELLOW); TOTAL VOLUME,BODY FLUID 2000 mL
[2021-04-30 13:44] LABS: BF EOSINOPHIL 2 %; BF LYMPHOCYTE 90 %
[2021-04-30] MEDS ORDERED: VANCOMYCIN 1G/250ML KIT 250 ML IV ONE (20:41)
[2021-04-30] MEDS ORDERED: VANCOMYCIN 1G VIAL IVPB SCH (21:00)
[2021-04-30] MEDS ORDERED: CEFTAZIDIME PENTAHYDRATE 1 GM/VIAL IVP SCH (21:00)
[2021-04-30] MEDS: TAMSULOSIN HCL 0.4 MG CAP.ER.24H PO SCH (21:40)
[2021-04-30] MEDS: AMITRIPTYLINE 25 MG TABLET PO SCH (21:40)
[2021-05-01 00:16] VITALS: BP 185/80
[2021-05-01 05:55] VITALS: BP 139/60
[2021-05-01 06:10] LABS: BASOPHILS % (AUTO) 0.5 % (0.0-5.0); EOSINOPHILS % (AUTO) 3.1 % (0.0-8.0); HEMATOCRIT 30.1 % (42-54); LYMPHOCYTES % (AUTO) 5.6 % (21.0-51.0); MEAN CORPUSCULAR HEMOGLOBIN 26.3 pg (27.0-33.0); MEAN CORPUSCULAR HGB CONC 30.9 g/dL (32.0-36.0); MEAN CORPUSCULAR VOLUME 85.3 fL (79-99); NEUTROPHILS % (AUTO) 83.8 % (40.0-77.0); PLATELET COUNT (AUTO) 263 K/uL (130-400); RED BLOOD CELL COUNT(AUTO) 3.53 MIL/uL (4.50-6.20); RED CELL DISTRIBUTION WIDTH 17.2 % (11.0-15.5); WHITE BLOOD COUNT (AUTO) 7.3 K/uL (4.8-10.8)
[2021-05-01 06:16] LABS: CREATININE 5.2 mg/dL (0.5-1.5); POTASSIUM 3.4 mmol/L (3.5-5.1)
[2021-05-01] MEDS: INSULIN HUMULIN R 100 UNIT/ML 3ML SQ SCH ×4 (06:41→12:47)
[2021-05-01 08:00] VITALS: BP 167/84
[2021-05-01] MEDS ORDERED: INSULIN GLARGINE 100 UNITS/ML 10 ML VIAL SQ SCH (09:00)
[2021-05-01] MEDS: HYDROCORTISONE 25 MG SUPPOSITORY PR SCH (09:00)
[2021-05-01] MEDS: UBIDECARENONE 300 MG PO SCH (09:00)
[2021-05-01] MEDS: PINDOLOL 5 MG TAB PO SCH (09:01)
[2021-05-01] MEDS: Vitamin B Complex/Vit C/Folic Acid PO SCH (09:01)
[2021-05-01] MEDS: ASPIRIN 81 MG EC TAB PO SCH (09:02)
[2021-05-01] MEDS: MULTIVITAMIN TABLET PO SCH (09:03)
[2021-05-01] MEDS: CLOPIDOGREL 75MG TAB PO SCH (09:03)
[2021-05-01] MEDS: PANTOPRAZOLE 40 MG TAB DR PO SCH (09:03)
[2021-05-01] MEDS: LOSARTAN 25 MG TABLET PO SCH (09:03)
[2021-05-01] MEDS: KCL 20 MEQ ERTAB PO SCH (09:03)
[2021-05-01] MEDS: FISH OIL 1000 MG/CAP PO SCH (09:03)
[2021-05-01 11:21] VITALS: BP 145/81
[2021-05-01] MEDS ORDERED: CIPROFLOXACIN HCL 500 MG TABLET PO SCH (12:00)
[2021-05-01 16:13] VITALS: BP 160/66
[2021-05-01] MEDS ORDERED: INSULIN NPH 100 UNIT/ML 3ML SQ SCH (21:00)
== END 2021-05-01 16:30 | disposition home or self-care (01) | DRG 347 ==
LOC: EDH 12:10 → EDHIP 12:11 → OBSVTOIN 12:11 → 3DH 21:08
PROVIDERS: ADMIT Internal Medicine; ATTEND Internal Medicine
PROC: 3E0234Z Introduction of Serum, Toxoid and Vaccine into Muscle, Percutaneous Approach (ICD-10-PCS; 2021-04-26)
PROC: 0DB98ZX Excision of Duodenum, Via Natural or Artificial Opening Endoscopic, Diagnostic (ICD-10-PCS; 2021-04-28)
PROC: 0DB78ZX Excision of Stomach, Pylorus, Via Natural or Artificial Opening Endoscopic, Diagnostic (ICD-10-PCS; 2021-04-28)
PROC: 0DB68ZX Excision of Stomach, Via Natural or Artificial Opening Endoscopic, Diagnostic (ICD-10-PCS; 2021-04-28)
PROC: 0DB38ZX Excision of Lower Esophagus, Via Natural or Artificial Opening Endoscopic, Diagnostic (ICD-10-PCS; 2021-04-28)
PROC: 30233N1 Transfusion of Nonautologous Red Blood Cells into Peripheral Vein, Percutaneous Approach (ICD-10-PCS; 2021-04-28)
PROC: 0DBC8ZZ Excision of Ileocecal Valve, Via Natural or Artificial Opening Endoscopic (ICD-10-PCS; principal; 2021-04-29)
PROC: 0DBK8ZZ Excision of Ascending Colon, Via Natural or Artificial Opening Endoscopic (ICD-10-PCS; 2021-04-29)
PROC: 0DBL8ZZ Excision of Transverse Colon, Via Natural or Artificial Opening Endoscopic (ICD-10-PCS; 2021-04-29)
PROC: 0DBH8ZZ Excision of Cecum, Via Natural or Artificial Opening Endoscopic (ICD-10-PCS; 2021-04-29)
PROC: 0W3P8ZZ Control Bleeding in Gastrointestinal Tract, Via Natural or Artificial Opening Endoscopic (ICD-10-PCS; 2021-04-29)
DX: K29.01 Acute gastritis with bleeding (principal); N18.6 End stage renal disease; I50.43 Acute on chronic combined systolic (congestive) and diastolic (congestive) heart failure; I13.2 Hypertensive heart and chronic kidney disease with heart failure and with stage 5 chronic kidney disease, or end stage renal disease; D62 Acute posthemorrhagic anemia; N39.0 Urinary tract infection, site not specified; I42.0 Dilated cardiomyopathy; G90.8 Other disorders of autonomic nervous system; K63.5 Polyp of colon; I25.10 Atherosclerotic heart disease of native coronary artery without angina pectoris; I25.5 Ischemic cardiomyopathy; I49.1 Atrial premature depolarization; N40.0 Benign prostatic hyperplasia without lower urinary tract symptoms; R29.6 Repeated falls; E87.6 Hypokalemia; E78.5 Hyperlipidemia, unspecified; E78.00 Pure hypercholesterolemia, unspecified; E11.65 Type 2 diabetes mellitus with hyperglycemia; E11.319 Type 2 diabetes mellitus with unspecified diabetic retinopathy without macular edema; E11.22 Type 2 diabetes mellitus with diabetic chronic kidney disease; E83.42 Hypomagnesemia; Z20.822 Contact with and (suspected) exposure to COVID-19; K21.00 Gastro-esophageal reflux disease with esophagitis, without bleeding; R19.5 Other fecal abnormalities; K64.1 Second degree hemorrhoids; R19.4 Change in bowel habit; D50.9 Iron deficiency anemia, unspecified; E66.01 Morbid (severe) obesity due to excess calories; I51.3 Intracardiac thrombosis, not elsewhere classified; K52.9 Noninfective gastroenteritis and colitis, unspecified; W19.XXXA Unspecified fall, initial encounter; Y93.89 Activity, other specified; Y92.89 Other specified places as the place of occurrence of the external cause; Z68.34 Body mass index [BMI] 34.0-34.9, adult; Y99.8 Other external cause status; Z79.4 Long term (current) use of insulin; Z99.2 Dependence on renal dialysis; Z98.1 Arthrodesis status; Z95.5 Presence of coronary angioplasty implant and graft; Z95.1 Presence of aortocoronary bypass graft; Z90.49 Acquired absence of other specified parts of digestive tract; Z23 Encounter for immunization; Z87.11 Personal history of peptic ulcer disease; Z85.46 Personal history of malignant neoplasm of prostate; Z91.11 Patient's noncompliance with dietary regimen; Z79.02 Long term (current) use of antithrombotics/antiplatelets; Z79.899 Other long term (current) drug therapy; Z91.19 Patient's noncompliance with other medical treatment and regimen; Z83.3 Family history of diabetes mellitus; Z83.6 Family history of other diseases of the respiratory system; Z82.49 Family history of ischemic heart disease and other diseases of the circulatory system
CPT/HCPCS: 36415; 36430; 43239; 45380; 45381; 45385; 70450; 71045; 80048; 80053; 80202; 80305; 81001; 82270; 82550; 82607; 82728; 82746; 82948; 83036; 83540; 83550; 83735; 83874; 83880; 84100; 84132; 84443; 84484; 85014; 85018; 85025; 85027; 85045; 85610; 86850; 86900; 86901; 86923; 87040; 87046; 87070; 87071; 87076; 87077; 87186; 87205; 87635; 88305; 88342; 89051; 90732; 93005; 93306; 93356; A4606; C9113; G0378; J0713; J1644; J1756; J1815; J2543; J2704; J3370; J3475; J3490; J7030; J7050; P9016

== ENCOUNTER 2021-05-09 12:16 | Emergency (ER) | payer MEDICARE ==
[~2021-05-09] VITALS: Ht 175.3 cm; Wt 102.5 kg
[~2021-05-09 12:16] MED LIST changes: +FAMO40TA7 PO
[2021-05-09 12:51] LABS: BASOPHILS % (AUTO) 0.3 % (0.0-5.0); EOSINOPHILS % (AUTO) 4.7 % (0.0-8.0); HEMATOCRIT 27.2 % (42-54); LYMPHOCYTES % (AUTO) 3.5 % (21.0-51.0); MEAN CORPUSCULAR HEMOGLOBIN 27.4 pg (27.0-33.0); MEAN CORPUSCULAR VOLUME 85.8 fL (79-99); MONOCYTES % (AUTO) 4.1 % (3.0-13.0); NEUTROPHILS % (AUTO) 87.1 % (40.0-77.0); PLATELET COUNT (AUTO) 197 K/uL (130-400); RED BLOOD CELL COUNT(AUTO) 3.17 MIL/uL (4.50-6.20); RED CELL DISTRIBUTION WIDTH 19.2 % (11.0-15.5); WHITE BLOOD COUNT (AUTO) 10.2 K/uL (4.8-10.8)
[2021-05-09 13:10] LABS: CREATININE 6.9 mg/dL (0.5-1.5); POTASSIUM 3.4 mmol/L (3.5-5.1)
[2021-05-09 13:21] LABS: ALBUMIN 2.1 g/dL (3.5-5.0); BILIRUBIN,TOTAL 0.2 mg/dL (0.2-1.0); MAGNESIUM 1.9 mg/dL (1.80-2.40); TOTAL PROTEIN, SERUM 5.4 g/dL (6.0-8.3)
[2021-05-09 16:42] VITALS: BP 145/68
== END 2021-05-09 16:50 | disposition home or self-care (01) ==
LOC: EDH 12:16
DX: E11.649 Type 2 diabetes mellitus with hypoglycemia without coma (principal); R41.82 Altered mental status, unspecified; E11.22 Type 2 diabetes mellitus with diabetic chronic kidney disease; I12.0 Hypertensive chronic kidney disease with stage 5 chronic kidney disease or end stage renal disease; N18.6 End stage renal disease; I49.8 Other specified cardiac arrhythmias; I95.1 Orthostatic hypotension; E78.00 Pure hypercholesterolemia, unspecified; I25.2 Old myocardial infarction; Z79.4 Long term (current) use of insulin; Z79.899 Other long term (current) drug therapy; Z95.1 Presence of aortocoronary bypass graft; Z95.5 Presence of coronary angioplasty implant and graft; Z99.2 Dependence on renal dialysis
CPT/HCPCS: 36415; 71045; 80053; 82550; 82948; 83735; 83874; 84484; 85025; 93005

== ENCOUNTER 2021-07-26 12:50 | Emergency (ER) | payer MEDICARE ==
[~2021-07-26] VITALS: Ht 177.8 cm; Wt 100.7 kg
[2021-07-26 13:18] LABS: BASOPHILS % (AUTO) 0.8 % (0.0-5.0); EOSINOPHILS % (AUTO) 4.7 % (0.0-8.0); HEMATOCRIT 35.5 % (42-54); LYMPHOCYTES % (AUTO) 3.1 % (21.0-51.0); MEAN CORPUSCULAR HEMOGLOBIN 27.4 pg (27.0-33.0); MEAN CORPUSCULAR HGB CONC 32.7 g/dL (32.0-36.0); MEAN CORPUSCULAR VOLUME 83.7 fL (79-99); MONOCYTES % (AUTO) 5.3 % (3.0-13.0); NEUTROPHILS % (AUTO) 85.4 % (40.0-77.0); PLATELET COUNT (AUTO) 204 K/uL (130-400); RED BLOOD CELL COUNT(AUTO) 4.24 MIL/uL (4.50-6.20); RED CELL DISTRIBUTION WIDTH 16.5 % (11.0-15.5); WHITE BLOOD COUNT (AUTO) 7.5 K/uL (4.8-10.8)
[2021-07-26 13:26] LABS: CREATININE 7.4 mg/dL (0.5-1.5); POTASSIUM 3.2 mmol/L (3.5-5.1)
[2021-07-26 13:29] LABS: INR 0.99 (0.85-1.15); PROTHROMBIN TIME 10.8 SEC (9.6-11.6)
[2021-07-26 13:30] LABS: ALBUMIN 2.3 g/dL (3.5-5.0); BILIRUBIN,TOTAL 0.3 mg/dL (0.2-1.0); PARTIAL THROMBOPLASTIN TIME 25.6 SEC (26.3-35.5)
[2021-07-26 13:43] LABS: B-TYPE NATRIURETIC PEPTIDE 980 pg/mL (0-100)
[2021-07-26] MEDS ORDERED: MAGNESIUM OXIDE 400 MG TABLET PO ONE ×2 (14:30)
[2021-07-26 16:26] VITALS: BP 112/47
== END 2021-07-26 16:29 | disposition home or self-care (01) ==
LOC: EDH 13:11
DX: R55 Syncope and collapse (principal); R53.1 Weakness; I12.0 Hypertensive chronic kidney disease with stage 5 chronic kidney disease or end stage renal disease; N18.6 End stage renal disease; Z99.2 Dependence on renal dialysis; Z79.899 Other long term (current) drug therapy
CPT/HCPCS: 36415; 70450; 71045; 80053; 83735; 83880; 84484; 85025; 85378; 85610; 85730; 93005

== ENCOUNTER 2021-07-31 12:50 | Emergency (ER) | payer MEDICARE ==
[2021-07-31 13:36] LABS: BASOPHILS % (AUTO) 0.7 % (0.0-5.0); EOSINOPHILS % (AUTO) 3.7 % (0.0-8.0); HEMATOCRIT 34.1 % (42-54); LYMPHOCYTES % (AUTO) 3.5 % (21.0-51.0); MEAN CORPUSCULAR HEMOGLOBIN 27.1 pg (27.0-33.0); MEAN CORPUSCULAR HGB CONC 32.6 g/dL (32.0-36.0); MEAN CORPUSCULAR VOLUME 83.4 fL (79-99); NEUTROPHILS % (AUTO) 86.5 % (40.0-77.0); PLATELET COUNT (AUTO) 242 K/uL (130-400); RED BLOOD CELL COUNT(AUTO) 4.09 MIL/uL (4.50-6.20); WHITE BLOOD COUNT (AUTO) 10.4 K/uL (4.8-10.8)
[2021-07-31 13:56] LABS: CREATININE 7.6 mg/dL (0.5-1.5)
[2021-07-31 14:00] LABS: ALBUMIN 2.3 g/dL (3.5-5.0); BILIRUBIN,TOTAL 0.3 mg/dL (0.2-1.0); MAGNESIUM 1.8 mg/dL (1.80-2.40); TOTAL PROTEIN, SERUM 6.1 g/dL (6.0-8.3)
[2021-07-31] MEDS ORDERED: POTASSIUM BICARB/CIT AC 25 MEQ TABLET.EFF PO ONE (14:30)
[2021-07-31 14:48] VITALS: BP 180/76
[2021-07-31] MEDS ORDERED: POTA-187 PO (14:52)
[2021-08-04] MEDS ORDERED: AEC81 PO (16:56)
[2021-08-04] MEDS ORDERED: FERR-72 PO (16:56)
[2021-08-04] MEDS ORDERED: LOSA25TA41 PO (16:56)
== END 2021-07-31 15:28 | disposition home or self-care (01) ==
LOC: EDH 12:50
DX: E87.6 Hypokalemia (principal); R53.1 Weakness; E11.9 Type 2 diabetes mellitus without complications; I10 Essential (primary) hypertension; I21.9 Acute myocardial infarction, unspecified; I25.10 Atherosclerotic heart disease of native coronary artery without angina pectoris; Z79.4 Long term (current) use of insulin; Z79.899 Other long term (current) drug therapy
CPT/HCPCS: 36415; 80053; 83735; 84484; 85025; 93005

== ENCOUNTER 2021-08-22 16:18 | Emergency (ER) | payer MEDICARE ==
[~2021-08-22] VITALS: Ht 177.8 cm; Wt 99.8 kg
[~2021-08-22 16:18] MED LIST changes: +AEC81 PO; +FERR-72 PO; +LOSA25TA41 PO; +POTA-187 PO
[2021-08-22 16:58] LABS: BASOPHILS % (AUTO) 0.4 % (0.0-5.0); EOSINOPHILS % (AUTO) 2.4 % (0.0-8.0); HEMATOCRIT 26.6 % (42-54); LYMPHOCYTES % (AUTO) 3.9 % (21.0-51.0); MEAN CORPUSCULAR HEMOGLOBIN 27.7 pg (27.0-33.0); MEAN CORPUSCULAR HGB CONC 33.1 g/dL (32.0-36.0); MEAN CORPUSCULAR VOLUME 83.6 fL (79-99); MONOCYTES % (AUTO) 4.3 % (3.0-13.0); NEUTROPHILS % (AUTO) 87.8 % (40.0-77.0); PLATELET COUNT (AUTO) 238 K/uL (130-400); RED BLOOD CELL COUNT(AUTO) 3.18 MIL/uL (4.50-6.20); RED CELL DISTRIBUTION WIDTH 16.9 % (11.0-15.5); WHITE BLOOD COUNT (AUTO) 10.5 K/uL (4.8-10.8)
[2021-08-22 17:07] LABS: CREATININE 7.6 mg/dL (0.5-1.5); POTASSIUM 3.9 mmol/L (3.5-5.1)
[2021-08-22 17:17] LABS: ALBUMIN 2.2 g/dL (3.5-5.0); BILIRUBIN,TOTAL 0.3 mg/dL (0.2-1.0); TOTAL PROTEIN, SERUM 5.9 g/dL (6.0-8.3)
[2021-08-22 17:57] LABS: APPEARANCE,URINE Cloudy (CLEAR); BILIRUBIN,URINE Negative (NEGATIVE); COLOR,URINE Yellow (YELLOW); GLUCOSE, URINE (UA) >=1000 mg/dL (NEGATIVE); KETONES,URINE Trace mg/dL (NEGATIVE); LEUKOCYTE ESTERASE ,URINE Trace (NEGATIVE); NITRATE,URINE Negative (NEGATIVE); OCCULT BLOOD,URINE Moderate (NEGATIVE); PROTEIN,URINE 300 mg/dL (NEGATIVE)
[2021-08-22 18:14] LABS: BACTERIA,URINE Few /HPF (None Seen); SQUAMOUS EPITHELIAL CELL,UR Few /HPF (0-2)
[2021-08-22 18:15] LABS: MUCUS,URINE Rare LPF (None Seen)
[2021-08-22 18:25] VITALS: BP 154/60
== END 2021-08-22 18:35 | disposition home or self-care (01) ==
LOC: EDH 16:18
DX: D50.9 Iron deficiency anemia, unspecified (principal); D63.1 Anemia in chronic kidney disease; R42 Dizziness and giddiness; E11.22 Type 2 diabetes mellitus with diabetic chronic kidney disease; N18.6 End stage renal disease; I50.9 Heart failure, unspecified; I25.10 Atherosclerotic heart disease of native coronary artery without angina pectoris; E78.00 Pure hypercholesterolemia, unspecified; K21.9 Gastro-esophageal reflux disease without esophagitis; Z79.4 Long term (current) use of insulin; Z79.82 Long term (current) use of aspirin; Z79.899 Other long term (current) drug therapy; Z90.49 Acquired absence of other specified parts of digestive tract; Z95.1 Presence of aortocoronary bypass graft; Z99.2 Dependence on renal dialysis
CPT/HCPCS: 36415; 80053; 81001; 84484; 85025; 93005

== ENCOUNTER 2021-08-23 23:10 | Observation (INO) | payer MEDICARE ==
[~2021-08-23] VITALS: Ht 175.3 cm; Wt 101.6 kg
[2021-08-24] MEDS ORDERED: LIDOCAINE HCL 2% VISCOUS 15 ML UDCUP ONE (00:06)
[2021-08-24 00:18] LABS: BILIRUBIN,URINE SMALL (NEGATIVE); GLUCOSE, URINE (UA) >=1000 mg/dL (NEGATIVE); KETONES,URINE 5 mg/dL (NEGATIVE); LEUKOCYTE ESTERASE ,URINE TRACE (NEGATIVE); NITRATE,URINE POSITIVE (NEGATIVE); OCCULT BLOOD,URINE LARGE (NEGATIVE); PROTEIN,URINE >=300 mg/dL (NEGATIVE); UROBILINOGEN,URINE 0.2 mg/dL (0.2-1.0)
[2021-08-24 00:49] LABS: BASOPHILS % (AUTO) 0.4 % (0.0-5.0); EOSINOPHILS % (AUTO) 2.8 % (0.0-8.0); HEMATOCRIT 26.4 % (42-54); LYMPHOCYTES % (AUTO) 5.4 % (21.0-51.0); MEAN CORPUSCULAR HEMOGLOBIN 28.1 pg (27.0-33.0); MEAN CORPUSCULAR HGB CONC 33.3 g/dL (32.0-36.0); MEAN CORPUSCULAR VOLUME 84.3 fL (79-99); MONOCYTES % (AUTO) 6.1 % (3.0-13.0); NEUTROPHILS % (AUTO) 84.4 % (40.0-77.0); PLATELET COUNT (AUTO) 230 K/uL (130-400); RED BLOOD CELL COUNT(AUTO) 3.13 MIL/uL (4.50-6.20); RED CELL DISTRIBUTION WIDTH 17.2 % (11.0-15.5); WHITE BLOOD COUNT (AUTO) 9.2 K/uL (4.8-10.8)
[2021-08-24] MEDS ORDERED: ACETAMINOPHEN 325 MG TAB PO PRN (01:00)
[2021-08-24] MEDS ORDERED: LIDOCAINE HCL 2% VISCOUS 15 ML UDCUP PO ONE (01:00)
[2021-08-24] MEDS ORDERED: ONDANSETRON 4MG INJ IV PRN (01:00)
[2021-08-24 01:02] LABS: ALBUMIN 2.4 g/dL (3.5-5.0); BILIRUBIN,TOTAL 0.3 mg/dL (0.2-1.0); POTASSIUM 3.8 mmol/L (3.5-5.1); TOTAL PROTEIN, SERUM 6.2 g/dL (6.0-8.3)
[2021-08-24 01:08] LABS: APPEARANCE,URINE CLOUDY (CLEAR); COLOR,URINE RED (YELLOW); RBC,URINE TNTC /HPF (0-1)
[2021-08-24 01:09] LABS: CREATININE 7.9 mg/dL (0.5-1.5)
[2021-08-24 01:09] LABS: BACTERIA,URINE Few /HPF (None Seen); SQUAMOUS EPITHELIAL CELL,UR Few /HPF (0-2)
[2021-08-24 01:10] LABS: RENAL EPITHELIAL CELLS,URINE Rare /HPF (None Seen); TRANSITIONAL EPI CELLS,URINE Few /HPF (None Seen)
[2021-08-24] MEDS ORDERED: INSULIN HUMULIN R 100 UNIT/ML 3ML SQ ONE (01:30)
[2021-08-24] MEDS ORDERED: LIRA0.6P SQ (02:09)
[2021-08-24] MEDS ORDERED: FOLI0.8T2 PO (02:09)
[2021-08-24] MEDS ORDERED: ERGO500093 PO (02:09)
[2021-08-24] MEDS ORDERED: AMIT25TA9 PO (02:09)
[2021-08-24] MEDS ORDERED: INSU100C6 SQ ×2 (02:09→12:43)
[2021-08-24] MEDS ORDERED: FURO40TA5 PO (02:09)
[2021-08-24] MEDS ORDERED: TAMS-1 PO (02:09)
[2021-08-24] MEDS ORDERED: FERR-72 PO (02:09)
[2021-08-24] MEDS ORDERED: PIND10TA2 PO (02:09)
[2021-08-24] MEDS ORDERED: LOSA50TA64 PO (02:09)
[2021-08-24] MEDS ORDERED: INSU100V12 SQ (02:09)
[2021-08-24] MEDS ORDERED: FAMO40TA7 PO (02:09)
[2021-08-24] MEDS ORDERED: OMEP20TA20 PO (02:09)
[2021-08-24] MEDS ORDERED: ASPI-1197 PO (02:09)
[2021-08-24] MEDS ORDERED: CLOP75TA32 PO (02:09)
[2021-08-24 04:05] VITALS: BP 163/57
[2021-08-24] MEDS: INSULIN HUMULIN R 100 UNIT/ML 3ML SQ SCH ×4 (06:43→22:12)
[2021-08-24 07:30] VITALS: BP 155/50
[2021-08-24] MEDS: FAMOTIDINE 20MG TAB PO SCH (08:43)
[2021-08-24] MEDS ORDERED: HEPARIN 5,000 UNIT VIAL SQ SCH (09:00)
[2021-08-24 11:00] VITALS: BP 165/88
[2021-08-24 11:45] LABS: POTASSIUM 3.2 mmol/L (3.5-5.1)
[2021-08-24 11:47] LABS: HEMOGLOBIN A1C 12.1 % (4.0-6.0)
[2021-08-24] MEDS ORDERED: KCL 20 MEQ ERTAB PO ONE ×2 (13:00→16:08)
[2021-08-24 16:00] VITALS: BP 154/54
[2021-08-24] MEDS: ZOSYN 3.375GM +NS 50ML IV SCH (16:12)
[2021-08-24 20:17] VITALS: BP 150/52
[2021-08-24] MEDS: AMITRIPTYLINE 25 MG TABLET PO SCH (22:02)
[2021-08-24] MEDS: PINDOLOL 5 MG TAB PO SCH (22:02)
[2021-08-24] MEDS: INSULIN GLARGINE 100 UNITS/ML 10 ML VIAL SQ SCH (22:11)
[2021-08-24 23:36] VITALS: BP 141/65
[2021-08-25] VITALS (22 sets, daily range): BP systolic 130–184; BP diastolic 52–89
[2021-08-25] MEDS: ZOSYN 3.375GM +NS 50ML IV SCH ×2 (04:31→17:22)
[2021-08-25 05:16] LABS: BASOPHILS % (AUTO) 0.4 % (0.0-5.0); EOSINOPHILS % (AUTO) 3.1 % (0.0-8.0); HEMATOCRIT 23.3 % (42-54); LYMPHOCYTES % (AUTO) 5.8 % (21.0-51.0); MEAN CORPUSCULAR HEMOGLOBIN 27.2 pg (27.0-33.0); MEAN CORPUSCULAR HGB CONC 32.2 g/dL (32.0-36.0); MEAN CORPUSCULAR VOLUME 84.4 fL (79-99); MONOCYTES % (AUTO) 8.8 % (3.0-13.0); NEUTROPHILS % (AUTO) 80.8 % (40.0-77.0); PLATELET COUNT (AUTO) 198 K/uL (130-400); RED BLOOD CELL COUNT(AUTO) 2.76 MIL/uL (4.50-6.20); RED CELL DISTRIBUTION WIDTH 17.2 % (11.0-15.5); WHITE BLOOD COUNT (AUTO) 7.1 K/uL (4.8-10.8)
[2021-08-25 05:32] LABS: MAGNESIUM 2.5 mg/dL (1.80-2.40); PHOSPHORUS 4.9 mg/dL (2.5-4.9); POTASSIUM 3.6 mmol/L (3.5-5.1)
[2021-08-25 05:50] LABS: CREATININE 8.2 mg/dL (0.5-1.5)
[2021-08-25] MEDS: INSULIN HUMULIN R 100 UNIT/ML 3ML SQ SCH ×5 (06:47→21:56)
[2021-08-25] MEDS ORDERED: INSULIN HUMULIN R 100 UNIT/ML 3ML SQ SCH (07:30)
[2021-08-25] MEDS: TAMSULOSIN HCL 0.4 MG CAP.ER.24H PO SCH (07:50)
[2021-08-25] MEDS: FERROUS SULFATE 325 MG TABLET.DR PO SCH (07:50)
[2021-08-25] MEDS: Vitamin B Complex/Vit C/Folic Acid PO SCH (07:50)
[2021-08-25] MEDS: ASPIRIN 81MG CHEW TAB PO SCH (07:50)
[2021-08-25] MEDS: FAMOTIDINE 20MG TAB PO SCH (07:51)
[2021-08-25] MEDS: PANTOPRAZOLE 40 MG TAB DR PO SCH (07:51)
[2021-08-25] MEDS: PINDOLOL 5 MG TAB PO SCH ×2 (07:51→21:49)
[2021-08-25] MEDS: LIRAGLUTIDE 1.8 MG SQ SCH (07:51)
[2021-08-25] MEDS ORDERED: FUROSEMIDE 40 MG TABLET PO SCH (09:00)
[2021-08-25] MEDS ORDERED: INSULIN GLARGINE 100 UNITS/ML 10 ML VIAL SQ SCH (09:00)
[2021-08-25] MEDS ORDERED: LOSARTAN 50 MG TABLET PO SCH (09:00)
[2021-08-25] MEDS ORDERED: NON-FORMULARY MEDICATION 1 EACH (Famotidine 40 MG) PO SCH (09:00)
[2021-08-25] MEDS ORDERED: 0.9%NACL 1000ML 1,000 ML IV ONE (10:47)
[2021-08-25] MEDS ORDERED: LIDOCAINE PF 100MG/5ML (2%) SYRINGE 5ML ONE (11:31)
[2021-08-25] MEDS ORDERED: MIDAZOLAM HCL 1 MG/ML 2ML VIAL ONE (11:32)
[2021-08-25] MEDS ORDERED: ROCURONIUM 10MG/1ML SYR 10 MG/ML ML ONE (11:32)
[2021-08-25] MEDS ORDERED: SUCCINYLCHOLINE CHLORIDE 20 MG/ML 10 ML VIAL ONE (11:32)
[2021-08-25] MEDS ORDERED: FENTANYL CITRATE PF 50 MCG/1 ML 2ML VIAL ONE (11:32)
[2021-08-25] MEDS ORDERED: PROPOFOL 10 MG/ML 20ML VIAL IV ONE (11:32)
[2021-08-25] MEDS ORDERED: CEFAZOLIN SODIUM 1 GM VIAL ONE (11:53)
[2021-08-25] MEDS ORDERED: EPHEDRINE SULFATE 50 MG/ML AMPULE ONE (11:53)
[2021-08-25] MEDS ORDERED: BACITRACIN 28.4 GM OINT TP ONE (12:10)
[2021-08-25] MEDS ORDERED: MEPERIDINE-PF 25 MG/ML SYG ONE (13:44)
[2021-08-25] MEDS ORDERED: HYDRALAZINE 20MG/ML VIAL IV ONE (14:30)
[2021-08-25] MEDS ORDERED: LABETALOL 20MG VIAL IV PRN (15:30)
[2021-08-25 16:36] LABS: PHOSPHORUS 5.4 mg/dL (2.5-4.9); THYROID STIMULATING HORMONE 5.79 uIU/mL (0.36-3.74)
[2021-08-25] MEDS: NIFEDIPINE 10 MG CAP PO SCH (21:49)
[2021-08-25] MEDS: AMITRIPTYLINE 25 MG TABLET PO SCH (21:49)
[2021-08-25] MEDS: INSULIN GLARGINE 100 UNITS/ML 10 ML VIAL SQ SCH (21:55)
[2021-08-26] MEDS: ZOSYN 3.375GM +NS 50ML IV SCH (04:37)
[2021-08-26 04:40] VITALS: BP 119/44
[2021-08-26] MEDS: INSULIN HUMULIN R 100 UNIT/ML 3ML SQ SCH ×4 (06:17→12:54)
[2021-08-26 08:00] VITALS: BP 130/51
[2021-08-26] MEDS ORDERED: ACETAMINOPHEN 325 MG TAB PO PRN (08:00)
[2021-08-26] MEDS: PINDOLOL 5 MG TAB PO SCH (08:47)
[2021-08-26] MEDS: TAMSULOSIN HCL 0.4 MG CAP.ER.24H PO SCH (08:48)
[2021-08-26] MEDS: NIFEDIPINE 10 MG CAP PO SCH ×2 (08:48→14:00)
[2021-08-26] MEDS: PANTOPRAZOLE 40 MG TAB DR PO SCH (08:48)
[2021-08-26] MEDS: Vitamin B Complex/Vit C/Folic Acid PO SCH (08:48)
[2021-08-26] MEDS: ASPIRIN 81MG CHEW TAB PO SCH (08:48)
[2021-08-26] MEDS: FAMOTIDINE 20MG TAB PO SCH (08:48)
[2021-08-26] MEDS: FERROUS SULFATE 325 MG TABLET.DR PO SCH (08:55)
[2021-08-26] MEDS: LIRAGLUTIDE 1.8 MG SQ SCH (08:59)
[2021-08-26] MEDS ORDERED: CEPH500B PO (09:38)
[2021-08-26] MEDS ORDERED: NIFE10 PO (09:41)
[2021-08-26 10:07] LABS: BASOPHILS % (AUTO) 0.2 % (0.0-5.0); EOSINOPHILS % (AUTO) 2.4 % (0.0-8.0); HEMATOCRIT 23.9 % (42-54); LYMPHOCYTES % (AUTO) 3.8 % (21.0-51.0); MEAN CORPUSCULAR HEMOGLOBIN 26.8 pg (27.0-33.0); MEAN CORPUSCULAR HGB CONC 31.8 g/dL (32.0-36.0); MEAN CORPUSCULAR VOLUME 84.2 fL (79-99); MONOCYTES % (AUTO) 4.9 % (3.0-13.0); NEUTROPHILS % (AUTO) 88.1 % (40.0-77.0); PLATELET COUNT (AUTO) 202 K/uL (130-400); RED BLOOD CELL COUNT(AUTO) 2.84 MIL/uL (4.50-6.20); RED CELL DISTRIBUTION WIDTH 17.3 % (11.0-15.5); WHITE BLOOD COUNT (AUTO) 10.1 K/uL (4.8-10.8)
[2021-08-26 10:22] LABS: CREATININE 7.7 mg/dL (0.5-1.5); POTASSIUM 3.4 mmol/L (3.5-5.1)
[2021-08-26 10:28] LABS: ALBUMIN 1.9 g/dL (3.5-5.0); BILIRUBIN,TOTAL 0.3 mg/dL (0.2-1.0); TOTAL PROTEIN, SERUM 5.3 g/dL (6.0-8.3)
[2021-08-26] MEDS ORDERED: KCL 20 MEQ ERTAB PO SCH (12:00)
== END 2021-08-26 15:45 | disposition home or self-care (01) ==
LOC: EDH 23:10 → EDHIP 08-24 00:39 → 3DH 08-24 03:11
PROVIDERS: ADMIT Internal Medicine; ATTEND Internal Medicine
DX: N35.919 Unspecified urethral stricture, male, unspecified site (principal); Z20.822 Contact with and (suspected) exposure to COVID-19; R33.8 Other retention of urine; N32.89 Other specified disorders of bladder; I25.10 Atherosclerotic heart disease of native coronary artery without angina pectoris; E66.9 Obesity, unspecified; I13.2 Hypertensive heart and chronic kidney disease with heart failure and with stage 5 chronic kidney disease, or end stage renal disease; E11.22 Type 2 diabetes mellitus with diabetic chronic kidney disease; I50.22 Chronic systolic (congestive) heart failure; N18.6 End stage renal disease; D63.1 Anemia in chronic kidney disease; N40.1 Benign prostatic hyperplasia with lower urinary tract symptoms; N32.0 Bladder-neck obstruction; E11.65 Type 2 diabetes mellitus with hyperglycemia; I16.0 Hypertensive urgency; I25.5 Ischemic cardiomyopathy; E11.621 Type 2 diabetes mellitus with foot ulcer; L97.519 Non-pressure chronic ulcer of other part of right foot with unspecified severity; Z79.82 Long term (current) use of aspirin; Z79.899 Other long term (current) drug therapy; Z95.1 Presence of aortocoronary bypass graft; Z85.46 Personal history of malignant neoplasm of prostate; Z99.2 Dependence on renal dialysis; Z91.19 Patient's noncompliance with other medical treatment and regimen; Z92.3 Personal history of irradiation; Z98.1 Arthrodesis status; Y84.2 Radiological procedure and radiotherapy as the cause of abnormal reaction of the patient, or of later complication, without mention of misadventure at the time of the procedure
CPT/HCPCS: 36415 ×3; 52000; 54415; 71045; 80048; 80053 ×2; 81001; 82306; 82330; 82607; 82728; 82746; 82948 ×12; 83036; 83540; 83550; 83735; 83970; 84100 ×2; 84145; 84443; 85025 ×3; 85045; 85651; 86140; 87088; 87635; 93005; 96365; 96366 ×3; 96372; 96375; 99284; A4354; A4358; C1769 ×2; G0378 ×61; J0330; J0360; J0690; J1644; J1815 ×10; J2001; J2175; J2250; J2543 ×4; J2704; J3010; J3490; J7030; J7120

== ENCOUNTER 2021-09-07 17:08 | Inpatient (IN) | payer MEDICARE ==
[~2021-09-07] VITALS: Ht 182.9 cm; Wt 101.2 kg
[~2021-09-07 17:08] MED LIST changes: -AEC81 PO; +ASPI-1197 PO; +CEPH500B PO; -ERGO2000 PO; +ERGO500093 PO; -INSU100I21 SQ; +INSU100V12 SQ; -LOSA25TA41 PO; -MIDO10TA PO; -MULT-1367 PO; +NIFE10 PO; -OMEG-148 PO; +OMEP20TA20 PO; -OMEP40CA21 PO; +PIND10TA2 PO; -PIND5 PO; -POTA-187 PO; -UBID300C PO
[2021-09-07 18:00] LABS: BASOPHILS % (AUTO) 0.3 % (0.0-5.0); EOSINOPHILS % (AUTO) 2.7 % (0.0-8.0); HEMATOCRIT 23.1 % (42-54); LYMPHOCYTES % (AUTO) 3.5 % (21.0-51.0); MEAN CORPUSCULAR HEMOGLOBIN 28.1 pg (27.0-33.0); MEAN CORPUSCULAR HGB CONC 32.5 g/dL (32.0-36.0); MEAN CORPUSCULAR VOLUME 86.5 fL (79-99); MONOCYTES % (AUTO) 3.5 % (3.0-13.0); NEUTROPHILS % (AUTO) 89.5 % (40.0-77.0); PLATELET COUNT (AUTO) 260 K/uL (130-400); RED BLOOD CELL COUNT(AUTO) 2.67 MIL/uL (4.50-6.20); RED CELL DISTRIBUTION WIDTH 19.5 % (11.0-15.5)
[2021-09-07 18:14] LABS: INR 1.02 (0.85-1.15); PROTHROMBIN TIME 11.1 SEC (9.6-11.6)
[2021-09-07 18:21] LABS: BILIRUBIN,TOTAL 0.2 mg/dL (0.2-1.0); CREATININE 6.1 mg/dL (0.5-1.5); TOTAL PROTEIN, SERUM 5.5 g/dL (6.0-8.3)
[2021-09-07 18:23] LABS: B-TYPE NATRIURETIC PEPTIDE 2390 pg/mL (0-100)
[2021-09-07 18:24] LABS: POTASSIUM 2.7 mmol/L (3.5-5.1)
[2021-09-07] MEDS ORDERED: PANTOPRAZOLE 40 MG/VIAL IVP ONE (19:00)
[2021-09-07] MEDS ORDERED: ACETAMINOPHEN 325 MG TAB PO PRN (19:30)
[2021-09-07] MEDS ORDERED: ONDANSETRON 4MG INJ IV PRN (19:30)
[2021-09-07] MEDS ORDERED: OCTREOTIDE ACETATE 1,250 MCG in 0.9% NACL 250ML 250 ML IV SCH (19:30)
[2021-09-07] MEDS ORDERED: NITROGLYCERIN 0.4 MG SL TAB SL PRN (19:30)
[2021-09-07] MEDS ORDERED: HYDROCODONE/ACETAMINOPHEN 5/325 MG TAB PO PRN (19:30)
[2021-09-07] MEDS ORDERED: OCTREOTIDE ACETATE 100 MCG/ML AMP IV SCH (19:30)
[2021-09-07] MEDS ORDERED: ZOSYN 3.375GM+NS 50ML 50 ML ONE (19:52)
[2021-09-07] MEDS: ZOSYN 3.375GM+NS 50ML 50 ML IV SCH (19:59)
[2021-09-07] MEDS ORDERED: POTASSIUM CHLORIDE 10MEQ/100ML 100 ML IV PRN (20:00)
[2021-09-07] MEDS ORDERED: LIDOCAINE HCL-MPF 1% 2ML VIAL IV PRN (20:00)
[2021-09-07] MEDS ORDERED: POTASSIUM CHLORIDE 20MEQ/100ML 100 ML IV PRN (20:00)
[2021-09-07] MEDS ORDERED: POTASSIUM CHLORIDE 10% ELIXIR 20 MEQ/15 ML UDCUP PO PRN (20:00)
[2021-09-07] MEDS ORDERED: POTASSIUM CHLORIDE 20MEQ/100ML 100 ML IV ONE (20:03)
[2021-09-07] MEDS: KCL 20 MEQ ERTAB PO PRN (20:16)
[2021-09-07 22:37] VITALS: BP 135/81
[2021-09-07] MEDS ORDERED: MAGN400T40 PO (22:50)
[2021-09-07] MEDS ORDERED: OMEP40CA21 PO (22:50)
[2021-09-07] MEDS ORDERED: MULT-1192 PO (22:50)
[2021-09-07] MEDS ORDERED: LOSA1TAB54 PO (22:50)
[2021-09-07] MEDS ORDERED: VIT-7 PO (22:50)
[2021-09-07] MEDS: TAMSULOSIN HCL 0.4 MG CAP.ER.24H PO SCH (23:58)
[2021-09-08] MEDS: AMITRIPTYLINE 25 MG TABLET PO SCH
[2021-09-08 03:28] LABS: BASOPHILS % (AUTO) 0.3 % (0.0-5.0); EOSINOPHILS % (AUTO) 3.1 % (0.0-8.0); HEMATOCRIT 22.1 % (42-54); LYMPHOCYTES % (AUTO) 4.6 % (21.0-51.0); MEAN CORPUSCULAR HEMOGLOBIN 28.1 pg (27.0-33.0); MEAN CORPUSCULAR HGB CONC 32.1 g/dL (32.0-36.0); MEAN CORPUSCULAR VOLUME 87.4 fL (79-99); MONOCYTES % (AUTO) 5.4 % (3.0-13.0); PLATELET COUNT (AUTO) 221 K/uL (130-400); RED BLOOD CELL COUNT(AUTO) 2.53 MIL/uL (4.50-6.20); RED CELL DISTRIBUTION WIDTH 19.9 % (11.0-15.5); WHITE BLOOD COUNT (AUTO) 10.8 K/uL (4.8-10.8)
[2021-09-08 03:44] VITALS: BP 176/75
[2021-09-08 03:44] LABS: CREATININE 6.4 mg/dL (0.5-1.5); PHOSPHORUS 3.9 mg/dL (2.5-4.9); POTASSIUM 3.3 mmol/L (3.5-5.1)
[2021-09-08] MEDS: INSULIN HUMULIN R 100 UNIT/ML 3ML SQ SCH ×5 (06:40→20:01)
[2021-09-08] MEDS: KCL 20 MEQ ERTAB PO PRN ×2 (06:43→08:04)
[2021-09-08 07:34] VITALS: BP 166/64
[2021-09-08] MEDS: ZOSYN 3.375GM+NS 50ML 50 ML IV SCH ×2 (08:04→21:19)
[2021-09-08] MEDS: TAMSULOSIN HCL 0.4 MG CAP.ER.24H PO SCH (08:04)
[2021-09-08] MEDS: PANTOPRAZOLE 40MG INJ 80 MG in 0.9%NACL 100ML 100 ML IV SCH ×2 (08:05→21:19)
[2021-09-08 11:30] VITALS: BP 162/75
[2021-09-08] MEDS: PINDOLOL 5 MG TAB PO SCH ×2 (12:00→20:02)
[2021-09-08] MEDS ORDERED: INSULIN GLARGINE 100 UNITS/ML 10 ML VIAL SQ SCH (13:00)
[2021-09-08 16:00] VITALS: BP 172/75
[2021-09-08 19:43] VITALS: BP 156/63
[2021-09-08] MEDS ORDERED: CEFTAZIDIME PENTAHYDRATE 1 GM/VIAL IVP SCH (20:00)
[2021-09-08] MEDS ORDERED: EPOETIN ALFA-EPBX (ESRD) 10,000 UNIT/ML VIAL SQ ONE (20:00)
[2021-09-08] MEDS ORDERED: AMITRIPTYLINE 25 MG TABLET PO SCH (21:00)
[2021-09-08 23:46] VITALS: BP 180/74
[2021-09-09] VITALS (13 sets, daily range): BP systolic 134–171; BP diastolic 45–77
[2021-09-09 00:48] LABS: CREATININE 6.1 mg/dL (0.5-1.5); MAGNESIUM 1.9 mg/dL (1.80-2.40); POTASSIUM 3.2 mmol/L (3.5-5.1)
[2021-09-09] MEDS: KCL 20 MEQ ERTAB PO PRN ×3 (01:20→08:31)
[2021-09-09 04:15] LABS: HEMATOCRIT 22.1 % (42-54); MEAN CORPUSCULAR HGB CONC 32.6 g/dL (32.0-36.0); MEAN CORPUSCULAR VOLUME 89.1 fL (79-99); PLATELET COUNT (AUTO) 230 K/uL (130-400); RED BLOOD CELL COUNT(AUTO) 2.48 MIL/uL (4.50-6.20); RED CELL DISTRIBUTION WIDTH 20.3 % (11.0-15.5); WHITE BLOOD COUNT (AUTO) 10.1 K/uL (4.8-10.8)
[2021-09-09 04:30] LABS: ALBUMIN 1.8 g/dL (3.5-5.0); BILIRUBIN,TOTAL 0.6 mg/dL (0.2-1.0); CREATININE 6.2 mg/dL (0.5-1.5); POTASSIUM 3.4 mmol/L (3.5-5.1); TOTAL PROTEIN, SERUM 5.1 g/dL (6.0-8.3)
[2021-09-09 04:34] LABS: % IRON SATURATION 27.2 % (30-44)
[2021-09-09 04:59] LABS: BASOPHILS % (MANUAL) 1 % (0-2); EOSINOPHILS % (MANUAL) 2 % (1-6); LYMPHOCYTES % (MANUAL) 7 % (22-44); MAN.DIFF COMMENT-IMPRESSION MANUAL DIFFERENTIAL; MONOCYTES % (MANUAL) 7 % (2-9); PLATELET MORPHOLOGY COMMENT ADEQUATE; SEGMENTED NEUTROPHILS % 83 % (40-70)
[2021-09-09] MEDS ORDERED: PROPOFOL 10 MG/ML 20ML VIAL IV ONE (06:46)
[2021-09-09] MEDS ORDERED: LIDOCAINE PF 100MG/5ML (2%) SYRINGE 5ML ONE (06:57)
[2021-09-09] MEDS: INSULIN HUMULIN R 100 UNIT/ML 3ML SQ SCH ×7 (07:30→21:14)
[2021-09-09] MEDS: ZOSYN 3.375GM+NS 50ML 50 ML IV SCH ×2 (08:30→21:15)
[2021-09-09] MEDS: TAMSULOSIN HCL 0.4 MG CAP.ER.24H PO SCH (08:30)
[2021-09-09] MEDS: Vitamin B Complex/Vit C/Folic Acid PO SCH (08:30)
[2021-09-09] MEDS: PINDOLOL 5 MG TAB PO SCH ×2 (09:44→21:15)
[2021-09-09] MEDS: AMITRIPTYLINE 25 MG TABLET PO SCH (21:15)
[2021-09-09 23:21] LABS: APPEARANCE BODY FLUID CLEAR (CLEAR); COLOR,BODY FLUID LT YELLOW (LT YELLOW); SPECIMENTYPE,BODY FLUID PERITONEAL; TOTAL VOLUME,BODY FLUID 90 mL
[2021-09-09 23:22] LABS: BODY FLUID RBC 4 /cu. mm.; BODY FLUID WBC 10 /cu. mm.
[2021-09-09 23:37] LABS: BF EOSINOPHIL 1 %; BF LYMPHOCYTE 62 %; BF MESOTHELIAL 8 %; BF MONOCYTE 15 %
[2021-09-10 04:06] VITALS: BP 150/65
[2021-09-10] MEDS: INSULIN HUMULIN R 100 UNIT/ML 3ML SQ SCH ×7 (06:50→21:00)
[2021-09-10 08:00] VITALS: BP 141/71
[2021-09-10] MEDS: Vitamin B Complex/Vit C/Folic Acid PO SCH (08:57)
[2021-09-10] MEDS: PINDOLOL 5 MG TAB PO SCH ×2 (08:57→21:09)
[2021-09-10] MEDS: TAMSULOSIN HCL 0.4 MG CAP.ER.24H PO SCH (08:57)
[2021-09-10] MEDS: ZOSYN 3.375GM+NS 50ML 50 ML IV SCH ×2 (08:57→21:18)
[2021-09-10 10:42] LABS: HEMATOCRIT 22.5 % (42-54); MEAN CORPUSCULAR HEMOGLOBIN 28.6 pg (27.0-33.0); MEAN CORPUSCULAR VOLUME 89.3 fL (79-99); RED BLOOD CELL COUNT(AUTO) 2.52 MIL/uL (4.50-6.20); RED CELL DISTRIBUTION WIDTH 20.5 % (11.0-15.5); WHITE BLOOD COUNT (AUTO) 9.6 K/uL (4.8-10.8)
[2021-09-10 11:01] LABS: ALBUMIN 1.8 g/dL (3.5-5.0); BILIRUBIN,TOTAL 0.2 mg/dL (0.2-1.0); CREATININE 6.9 mg/dL (0.5-1.5); POTASSIUM 3.5 mmol/L (3.5-5.1); TOTAL PROTEIN, SERUM 5.1 g/dL (6.0-8.3)
[2021-09-10 12:00] VITALS: BP 154/67
[2021-09-10 16:00] VITALS: BP 158/81
[2021-09-10 19:18] VITALS: BP 153/53
[2021-09-10] MEDS: AMITRIPTYLINE 25 MG TABLET PO SCH (21:09)
[2021-09-11] VITALS: BP 183/72
[2021-09-11 03:22] LABS: HEMATOCRIT 23.3 % (42-54); MEAN CORPUSCULAR HEMOGLOBIN 29.2 pg (27.0-33.0); MEAN CORPUSCULAR HGB CONC 32.6 g/dL (32.0-36.0); MEAN CORPUSCULAR VOLUME 89.6 fL (79-99); RED BLOOD CELL COUNT(AUTO) 2.6 MIL/uL (4.50-6.20); WHITE BLOOD COUNT (AUTO) 8.3 K/uL (4.8-10.8)
[2021-09-11 03:34] LABS: CREATININE 6.8 mg/dL (0.5-1.5); PHOSPHORUS 3.8 mg/dL (2.5-4.9); POTASSIUM 3.4 mmol/L (3.5-5.1)
[2021-09-11 04:00] VITALS: BP 138/48
[2021-09-11] MEDS: INSULIN HUMULIN R 100 UNIT/ML 3ML SQ SCH ×4 (06:42→11:35)
[2021-09-11 08:30] VITALS: BP 150/70
[2021-09-11] MEDS ORDERED: LOSA1TAB37 PO (08:31)
[2021-09-11] MEDS: PINDOLOL 5 MG TAB PO SCH (08:31)
[2021-09-11] MEDS: Vitamin B Complex/Vit C/Folic Acid PO SCH (08:32)
[2021-09-11] MEDS: ZOSYN 3.375GM+NS 50ML 50 ML IV SCH (08:32)
[2021-09-11] MEDS: TAMSULOSIN HCL 0.4 MG CAP.ER.24H PO SCH (08:32)
[2021-09-11] MEDS ORDERED: LOSARTAN 50 MG TABLET PO SCH (09:00)
[2021-09-11] MEDS ORDERED: INSULIN GLARGINE 100 UNITS/ML 10 ML VIAL SQ SCH (09:00)
[2021-09-11 11:29] VITALS: BP 151/53
== END 2021-09-11 13:00 | disposition home or self-care (01) | DRG 377 ==
LOC: EDH 17:08 → EDHIP 19:22 → 2DH 21:44
PROVIDERS: ADMIT Internal Medicine; ATTEND Internal Medicine
PROC: 0DB68ZZ Excision of Stomach, Via Natural or Artificial Opening Endoscopic (ICD-10-PCS; principal; 2021-09-09)
DX: K29.71 Gastritis, unspecified, with bleeding (principal); K65.9 Peritonitis, unspecified; N18.6 End stage renal disease; I42.9 Cardiomyopathy, unspecified; I13.2 Hypertensive heart and chronic kidney disease with heart failure and with stage 5 chronic kidney disease, or end stage renal disease; D62 Acute posthemorrhagic anemia; K31.7 Polyp of stomach and duodenum; D64.9 Anemia, unspecified; D72.829 Elevated white blood cell count, unspecified; E87.6 Hypokalemia; Z99.2 Dependence on renal dialysis; N40.0 Benign prostatic hyperplasia without lower urinary tract symptoms; Z85.46 Personal history of malignant neoplasm of prostate; Z82.49 Family history of ischemic heart disease and other diseases of the circulatory system; Z83.3 Family history of diabetes mellitus; Z82.5 Family history of asthma and other chronic lower respiratory diseases; Z95.1 Presence of aortocoronary bypass graft; Z98.1 Arthrodesis status; I50.9 Heart failure, unspecified; I25.10 Atherosclerotic heart disease of native coronary artery without angina pectoris; E11.22 Type 2 diabetes mellitus with diabetic chronic kidney disease; Z91.19 Patient's noncompliance with other medical treatment and regimen
CPT/HCPCS: 36415; 43251; 80048; 80053; 82728; 82948; 83540; 83550; 83605; 83735; 83880; 84100; 84484; 85025; 85027; 85610; 86850; 86900; 86901; 87040; 87071; 87205; 89051; 93005; 99291; A4606; C9113; G0378; J1815; J2001; J2354; J2543; J2704; J3480; J3490; J7050

== ENCOUNTER 2021-09-17 00:26 | Emergency (ER) | payer MEDICARE ==
[~2021-09-17] VITALS: Ht 177.8 cm; Wt 101.2 kg
[~2021-09-17 00:26] MED LIST changes: -CEPH500B PO; -FAMO40TA7 PO; +LOSA1TAB37 PO; +MAGN400T40 PO; -NIFE10 PO; -OMEP20TA20 PO; +OMEP40CA21 PO
[2021-09-17] MEDS ORDERED: ACET1TAB97 PO (01:56)
[2021-09-17] MEDS ORDERED: HYDROCODONE/ACETAMINOPHEN 5/325 MG TAB PO ONE (02:00)
[2021-09-17 02:09] VITALS: BP 168/66
== END 2021-09-17 02:10 | disposition home or self-care (01) ==
LOC: EDH 00:26
DX: S42.032A Displaced fracture of lateral end of left clavicle, initial encounter for closed fracture (principal); I48.91 Unspecified atrial fibrillation; E11.9 Type 2 diabetes mellitus without complications; E78.00 Pure hypercholesterolemia, unspecified; I10 Essential (primary) hypertension; Z79.899 Other long term (current) drug therapy; Z79.82 Long term (current) use of aspirin; Z79.4 Long term (current) use of insulin; Z98.890 Other specified postprocedural states; W05.1XXA Fall from non-moving nonmotorized scooter, initial encounter; Y93.89 Activity, other specified; Y92.89 Other specified places as the place of occurrence of the external cause; Y99.8 Other external cause status
CPT/HCPCS: 73000; 73030